=== PATIENT | male | born 1940 | race Caucasian/White ===

== ENCOUNTER 2024-06-23 14:32 | Emergency (ER) | payer OTHER, SELFPAY ==
[2024-06-23] VITALS (7 sets, daily range): BP systolic 105–176; BP diastolic 53–102; BMI 16.5
--- NOTE | 2024-06-23 16:12 | ED.GENMED ---
History of Present Illness
General
Chief Complaint: Swallowing Problem
Time Seen by Provider: 06/23/24 16:03
History of Present Illness
History of Present Illness:
Patient is a 84-year-old male with history of A-fib on Eliquis presenting to the emergency department with rib pain and flank pain after a fall. Patient states that yesterday he was sitting on a chair when he was attempting to get up he fell
landing on his right ribs. He did not hit his head or lose consciousness. He was ambulatory afterwards. Denies any numbness tingling headache. The fall was almost 24 hours ago. He does state that since then he has been having right sided rib
pain. He also had a cough for a few days. No fevers chills or URI symptoms. He states that he was eating a sandwich and then started choking. He is unsure if it was secondary to the cough or the pain. He has been able to eat since then has had
no issues.
Past History
Past History
ED Past Medical History: Arrthythmia, COPD, HTN and NIDDM
ED Past Surgical History: Negative Cardiac
Social History
Tobacco: Non-smoker
Alcohol: None
Drug: None
Personal:
Living: with family
Employment: Retired
Family History
Family History: Other (Noncontributory)
Phy Exam
Physical Exam
Physical Exam:
GENERAL: no acute distress
HEENT: atraumatic, extraocular muscles intact, no signs of entrapment, no other obvious trauma
NECK: no midline tenderness, normal range of motion
BACK: no midline tenderness, no other obvious trauma
CHEST: Right lower posterior ribs tenderness with no ecchymosis or crepitus
LUNGS: clear to auscultation bilaterally
CARDIOVASCULAR: regular rate and rhythm
ABDOMEN: soft, non-tender, no masses, no other obvious trauma, mild right flank pain
PELVIS: stable, no obvious injury
EXTREMITIES: moving all extremities, distal pulses intact, no other obvious trauma
NEUROLOGIC: awake, alert x 3, no focal deficits
Course
Orders/Labs/Results
Orders:
Orders
06/23/24 16:11
CT Chest/abd/pel Wo Iv Cont Urgent
Reason For Exam: right rib pain, right flank pain s/p fall
06/23/24 16:25
Basic Metabolic Panel Urgent
Complete Blood Count/With Diff Urgent
Abnormal Lab Results
06/23/24
16:25
RBC 4.05 L 10^6/uL
(4.70-6.10)
Hct 37.3 L %
(39.0-52.0)
MCH 32.8 H pg
(27.0-31.0)
Plt Count 94 L 10^3/uL
(130-400)
Absolute Lymphs (auto) 0.8 L 10^3/uL
(1.2-3.4)
Neutrophils % 80.7 H %
(42.2-75.2)
Lymphocytes % 9.7 L %
(20.5-51.1)
Chloride 114 H mmol/L
(98-107)
BUN 43 H mg/dl
(9-20)
Glucose 155 H mg/dl
(70-99)
Calcium 8.2 L mg/dl
(8.4-10.2)
06/23/24 16:25
06/23/24 16:25
Vital Signs
Initial and Last Documented VS:
Initial Vital Signs
Temp Pulse Resp BP Pulse Ox
98.7 F 95 18 105/58 97
06/23/24 14:35 06/23/24 14:35 06/23/24 14:35 06/23/24 14:35 06/23/24 14:35
Last Documented Vital Signs
Temp Pulse Resp BP Pulse Ox
98.7 F 66 14 176/84 99
06/23/24 14:35 06/23/24 21:00 06/23/24 21:00 06/23/24 21:00 06/23/24 21:00
MDM/Problems Addressed
Differential Diagnosis Includes:
Patient is a 84-year-old male with a fall about 24 hours ago with right-sided posterior rib pain and right flank pain. There was no head strike and he did not lose consciousness. He is not have any neurodeficits. Concern for rib fracture.
Considered intracranial injury though less likely as the fall was 24 hours ago with no neurodeficits and there was no head strike. Will obtain CT chest abdomen pelvis with contrast to rule out any traumatic injuries. I did offer pain control the
patient declines at this time
*Critical Care Note
Total Time (30-74mins, 75-104mins- exclusive of procedures): Not Applicable
Update Note
Update Note:
Blood work generally unremarkable. Patient went for CT scan where unfortunately his IV infiltrated. New IV was placed. Patient went back for CT scan and still having some pain with it. Decision was then made to obtain dry CT. He has been
hemodynamically stable with improvement in his pain without any pain medications so less likely to have intra-abdominal injuries.
Pending CT scan with no acute rib fractures. Patient remains well-controlled with his pain. Will discharge at this time.
ED Attending Note
-
Portions of this chart may have been created with voice recognition software.� Occasional wrong word or��sound alike� substitutions may have occurred due to the inherent limitations of voice recognition software.
Discharge Plan
Departure
Patient Disposition: Home (Routine Discharge)
Date of Disposition: 06/23/24
Time of Disposition: 21:18
Patient with high blood pressure during this ER visit?: No
Discharge Problem:
Fall, Rib contusion
Instructions: Rib fracture or bruised rib - ED discharge instructions
Prescriptions:
No Action
nitroglycerin 0.4 MG tablet, sublingual
0.4 mg sublingual [id number] PRN (Reason: chest pain)
trazodone 50 MG tablet
50 mg PO HS
atorvastatin 20 MG tablet
20 mg PO QPM
aspirin 81 MG tablet,delayed release (DR/EC)
81 mg PO DAILY
tamsulosin 0.4 MG capsule
0.4 mg PO DAILY
albuterol sulfate 1 PUFF HFA aerosol inhaler
2 puff inhalation R Q4HPRN PRN (Reason: SOB)
diltiazem HCl 240 MG capsule,extended release 24hr
240 mg PO DAILY Qty: 30 0RF
Trelegy Ellipta 1 EACH blister with device
1 puff IH R DAILY Qty: 0
acetaminophen [Tylenol Extra Strength] 500 MG tablet
500 mg PO Q4HPRN PRN (Reason: mild pain/ fever>100.5F) 0RF
Eliquis 5 MG tablet
2.5 mg PO BID
Patient Comments:
08/24/21-patient said he cuts these in half, ecw reocrd 2.5mg bid
(DME) Accu-Chek Guide test strips Strip
Qty: 200 0RF
Rx Instructions:
As Directed
(DME) lancets [Accu-Chek Softclix Lancets] Misc
Qty: 200 0RF
Rx Instructions:
As Directed
insulin aspart U-100 [Novolog FlexPen U-100 Insulin] 100 unit/mL (3 mL) Insulin Pen
10 unit SC AC Qty: 5 0RF
insulin glargine [Basaglar KwikPen U-100 Insulin] 100 unit/mL (3 mL) Insulin Pen
25 unit SC QPM Qty: 5 0RF
(DME) pen needle, diabetic [BD Ultra-Fine Eleonora Pen Needle] 32 gauge x 532' Needle
Qty: 200 0RF
Rx Instructions:
As Directed
(DME) blood-glucose meter [Accu-Chek Guide Glucose Meter] Misc
Qty: 1 0RF
Rx Instructions:
As Directed
Referrals:
UNKNOWN - PT DOES,NOT KNOW [Family Provider] -
Interventions
Interventions:
*Risk Screen - Suicide Last Done: 06/23/24 14:35
*General Assessment Last Done: 06/23/24 14:35
*Neglect/Abuse Screening Last Done: 06/23/24 14:35
*ED COVID-19 Vaccine History Last Done: 06/23/24 14:35
ED-EENT Assessment Last Done: 06/23/24 16:54
[facility]-Dvesfs-Wntmpsrgji Assessment Last Done: 06/23/24 16:54
ED- Pulmonary Assessment Last Done: 06/23/24 16:54
ED- Neurological Assessment Last Done: 06/23/24 16:54
Discharge Date and Time
Print Language: ROMANSH
[2024-06-23 16:46] LABS: % Basophils 0.6 % (0-2); % Eosinophils 1.9 % (0-6); % Immature Granulocytes 0.4 % (0-0.5); % Lymphocytes 9.7 % (20.5-51.1); % Monocytes 6.7 % (1.7-9.3); % Neutrophils 80.7 % (42.2-75.2); Absolute Basophils 0.1 10^3/uL (0-0.2); Absolute Eosinophils 0.2 10^3/uL (0-0.7); Absolute Lymphocytes 0.8 10^3/uL (1.2-3.4); Absolute Monocytes 0.5 10^3/uL (0.1-0.6); Absolute Neutrophils 6.3 10^3/uL (1.4-6.5); Hematocrit 37.3 % (39.0-52.0); Hemoglobin 13.3 g/dL (13.0-18.0); Mean Corp Hgb Conc. 35.7 g/dL (33.0-37.0); Mean Corpuscular Hgb 32.8 pg (27.0-31.0); Mean Corpuscular Volume 92.1 fL (80.0-94.0); Nucleated Red Blood Cells % 0 % (-); Red Blood Cell Count 4.05 10^6/uL (4.70-6.10); White Blood Cell Count 7.8 10^3/uL (4.8-10.8)
[2024-06-23 16:48] LABS: Blood Urea Nitrogen 43 mg/dl (9-20); Calcium 8.2 mg/dl (8.4-10.2); Carbon Dioxide 22 mmol/L (22-30); Chloride 114 mmol/L (98-107); Estimated Creatinine Clearance 31 ml/min; Glucose 155 mg/dl (70-99); Sodium 144 mmol/L (135-145); eGFR 54.51
[2024-06-23 17:28] LABS: Mean Platelet Volume 8.6 fL (7.4-10.4); Platelet Count 94 10^3/uL (130-400)
== END 2024-06-23 23:09 | disposition home or self-care (01) ==
LOC: EMR 14:32
PROVIDERS: EMERGENCY PHYSICIAN Student in an Organized Health Care Education/Training Program
DX: S20.211A Contusion of right front wall of thorax, initial encounter (principal); W19.XXXA Unspecified fall, initial encounter; I48.91 Unspecified atrial fibrillation
CPT/HCPCS: 99285; 71250; 74176; 80048; 85025

== ENCOUNTER 2024-07-03 18:35 | Inpatient (IN) | payer OTHER, SELFPAY ==
[2024-07-03] VITALS (10 sets, daily range): BP systolic 134–185; BP diastolic 50–97; BMI 20.1
[2024-07-03 14:21] LABS: % Basophils 0.5 % (0-2); % Eosinophils 1.7 % (0-6); % Immature Granulocytes 0.2 % (0-0.5); % Lymphocytes 10.1 % (20.5-51.1); % Monocytes 7.2 % (1.7-9.3); % Neutrophils 80.3 % (42.2-75.2); Absolute Basophils 0.1 10^3/uL (0-0.2); Absolute Eosinophils 0.2 10^3/uL (0-0.7); Absolute Lymphocytes 0.9 10^3/uL (1.2-3.4); Absolute Monocytes 0.7 10^3/uL (0.1-0.6); Absolute Neutrophils 7.4 10^3/uL (1.4-6.5); Hematocrit 39.5 % (39.0-52.0); Hemoglobin 13.6 g/dL (13.0-18.0); Mean Corp Hgb Conc. 34.4 g/dL (33.0-37.0); Mean Corpuscular Hgb 32.2 pg (27.0-31.0); Mean Corpuscular Volume 93.4 fL (80.0-94.0); Nucleated Red Blood Cells % 0 % (-); Platelet Count 115 10^3/uL (130-400); Red Blood Cell Count 4.23 10^6/uL (4.70-6.10); Red Cell Dist. Width 12.9 % (11.5-14.5); White Blood Cell Count 9.2 10^3/uL (4.8-10.8)
--- NOTE | 2024-07-03 14:22 | ED.CVA ---
History of Present Illness
General
Chief Complaint: CVA/TIA Symptoms
Source: family (Cousin)
Exam Limitations: clinical condition
Time Seen by Provider: 07/03/24 13:49
Onset of Stroke Symptoms
Onset of symptoms known: No
Time pt last seen normal is known: No
History of Present Illness
History of Present Illness:
84-year-old male lives with a tenant. Apparently the tenant noted that he came out of the bedroom this morning was not dressed and dressed himself in the living room which is unusual. He also seems somewhat confused having breakfast and who is to
make breakfast. Secondarily I had heard that he had urinated outside however this is not confirmed by the cousin. Patient has no specific complaints and seems unsure why he is here. Cousin does state he has a history of some dementia although my
description of his cognitive issues sound worse than baseline
Past History
Past History
ED Past Medical History: Arrthythmia, COPD, HTN and NIDDM
ED Past Surgical History: Negative Cardiac
Social History
Tobacco: Non-smoker
Alcohol: None
Drug: None
Personal:
Living: with family
Employment: Retired
Family History
Family History: Other (Noncontributory)
Review of Systems
Review of Systems
Unable to obtain full review of systems at this time due to: dementia
All Other Systems: Not applicable
Phy Exam
Physical Exam
Physical Exam:
GENERAL: Alert and oriented to name and place.. Chronically ill-appearing. In no apparent distress will repeat some questions like repeating his date of to other questions
EYE: Orbits normal.
NECK: Supple, no significant adenopathy.
ENT: Pharynx without erythema
CARDIAC: Regular rate and rhythm without any obvious murmurs.
LUNGS: Clear breath sounds,normal
ABDOMEN: Soft, without focal tenderness or distention
NEUROLOGICAL: Nonfocal. Follows simple commands. Vision normal. Extraocular muscles intact
SKIN: Warm and dry, no rash or lesion, no discoloration, skin intact.
MUSCULOSKELETAL: No edema,no deformity.Good color
PSYCH: Slightly flat affect
Course
Orders/Labs/Results
Orders:
Orders
07/03/24 Breakfast
Cholesterol Lowering
At Your Request: Non-Participating
Does patient need a safe tray?: No
Cholesterol Lowering: Sodium, 2 Gram
1800 filomena/15 CHO Diabetic
07/03/24 13:56
Electrocardiogram (*1) Stat
Reason for Study: Other
Other Reason for Exam: neuro symptoms
CT Head W/o Iv Contrast Urgent
Comment:
Reason For Exam: Confusion/change in mental status
Cardiac Monitoring- Treatment ONCE
EKG- Treatment ONCE
IV Insert/Care/Rem.- Treatment PRN
Pulse Ox/cont/shift [RESP] Stat
Quantity: 1
07/03/24 14:04
Complete Blood Count/With Diff Urgent
Comprehensive Metabolic Panel Urgent
07/03/24 14:11
Speech Screening from Juliana Routine
07/03/24 14:22
Urinalysis Reflex To Culture Urgent
Date Specimen was Collected: 07/03/24
Time Specimen was Collected: 14:07
Urine Microscopic Reflex Cult Urgent
07/03/24 15:54
Dexamethasone Sod Phosphate [Decadron] 6 mg IV NOW STA
07/03/24 15:57
Levetiracetam Injectable [Keppra] 1,000 mg IV NOW STA
07/03/24 17:27
Admit/Transfer Patient As Directed
Co-Sign Provider:
Level of Care: Inpatient admission
Assign to:: Telemetry
Physician / Group: [email or web address]
Diagnosis: left parietal lobe mass, AMS
Reason for Telemetry: Arrhythmia
Date to Stop Telemetry: 07/06/24
Time to Stop Telemetry: 11:00
Reason for Hospitalization: left parietal lobe mass, AMS
Expected length of stay greater than two midnights?: Yes
ELOS- Estimated Length of Stay in days: 3
I certify the patient meets the requirements for IP care: Yes
07/03/24 17:30
Code Status As Directed
Resuscitation Status: Full Code
07/03/24 20:43
Acetaminophen [Tylenol] 650 mg PO Q4HPRN PRN
Atorvastatin [Lipitor] 20 mg PO QPM
Bisacodyl [Dulcolax] 10 mg RECTAL [id number] PRN
Dextrose 50%-Water [Dextrose 50% Syringe] 12.5 grams IV [id number] PRN
Docusate W/Senna [Senokot-S] 1 tablet PO BIDPRN PRN
Glucagon [GlucaGen] 1 mg IM PRN PRN
Polyethylene Glycol Powder [Miralax] 17 grams PO DAILYPRN PRN
Trazodone [Desyrel] 50 mg PO HSPRN PRN
07/03/24 20:43
Neurosurgery Consult Routine
Consulting Provider: Candace Terry
Was physician already notified: Yes
Reason for Consult: New left parietal lobe mass causing mild mass effect
Activity As Directed
Activity Level: With Assistance
Bedside Glucose Monitoring As Directed
Frequency: AC&HS
Additional Instructions:: Change to q6h if pt on TPN, tube feeding or not eating
Intake/ Output As Directed
Frequency: Per unit guidelines
Pneumatic Compression Sleeves As Directed
Type: Knee high
Vital Signs As Directed
Frequency: Per unit guidelines
Weight As Directed
Frequency: Daily
DX Deep Vein Thrombosis Video Routine
07/03/24 22:00
Carbidopa/Levodopa [Sinemet 25-100] 1 tablet PO TID
Tamsulosin [Flomax] 0.4 mg PO HS
07/04/24 04:00
Dexamethasone Sod Phosphate [Decadron] 2 mg IV Q12H
07/04/24 06:00
Brain W/O & With Contrast MR [MR Brain W/o & With Contrast] IN AM
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
Reason For Exam: New left parietal lobe mass causing mild mass effe
Recent pill cam endoscopy?: No
07/04/24 07:23
Basic Metabolic Panel IN AM
Complete Blood Count/No Diff IN AM
Glycohemoglobin (HgbA1c) IN AM
07/04/24 07:30
Insulin Aspart Corrective Low [Novolog Flexpen-Low Resistance] See Protocol SC AC
07/04/24 08:00
Levetiracetam [Keppra] 500 mg PO BID
07/06/24 11:00
DC Protocol for Telemetry ONCE
Abnormal Lab Results
07/03/24 07/03/24
14:04 14:22
RBC 4.23 L 10^6/uL
(4.70-6.10)
MCH 32.2 H pg
(27.0-31.0)
Plt Count 115 L 10^3/uL
(130-400)
Absolute Neuts (auto) 7.4 H 10^3/uL
(1.4-6.5)
Absolute Lymphs (auto) 0.9 L 10^3/uL
(1.2-3.4)
Absolute Monos (auto) 0.7 H 10^3/uL
(0.1-0.6)
Neutrophils % 80.3 H %
(42.2-75.2)
Lymphocytes % 10.1 L %
(20.5-51.1)
Chloride 109 H mmol/L
(98-107)
BUN 48 H mg/dl
(9-20)
Creatinine 1.5 H mg/dL
(0.7-1.3)
Glucose 116 H mg/dl
(70-99)
Alkaline Phosphatase 138 H U/L
(38-126)
Ur Occult Blood Reflex 1+ A
(Negative)
Urine Albumin (Reflex) 2+ A
(Neg - Trace)
07/03/24 14:04
07/03/24 14:04
Vital Signs
Initial and Last Documented VS:
Initial Vital Signs
Temp Pulse Resp BP Pulse Ox
97.9 F 74 16 149/88 98
07/03/24 13:50 07/03/24 13:50 07/03/24 13:50 07/03/24 13:50 07/03/24 13:50
Last Documented Vital Signs
Temp Pulse Resp BP Pulse Ox
97.8 F 83 16 165/73 97
07/05/24 07:40 07/05/24 07:40 07/05/24 07:40 07/05/24 07:40 07/05/24 07:40
MDM/Problems Addressed
Differential Diagnosis Includes:
Patient nonfocal however cognitively off. Workup in progress looking for electrolyte issue infection central neurologic issue.
*Radiology
Radiology exam reviewed: radiology read reviewed (3 cm left parietal mass. Mild mass effect)
*Critical Care Note
Total Time (30-74mins, 75-104mins- exclusive of procedures): 35
Data Reviewed
Review of Other/Old Records Reveals: Labs, Records and Testing
Update Note
Update Note:
Neurosurgery. Will give a dose of Decadron Keppra admit for MRI with and without contrast. Was contacted
Family updated. Patient aware although cognitively not totally convinced he is fully understanding
ED Attending Note
-
Portions of this chart may have been created with voice recognition software.� Occasional wrong word or��sound alike� substitutions may have occurred due to the inherent limitations of voice recognition software.
Discharge Plan
Departure
Patient Disposition: Admit
Date of Disposition: 07/03/24
Time of Disposition: 15:58
Presentation/result/management discussed w/ accepting MD/DO: Neurosurgery
Discharge Problem:
Change in mental status, New parietal mass, History of Parkinson's/mild dementia
Interventions
Interventions:
*Risk Screen - Suicide Last Done: 07/03/24 13:50
*General Assessment Last Done: 07/03/24 14:00
*Neglect/Abuse Screening Last Done: 07/03/24 13:50
*ED- Fall Risk Assessment Last Done: 07/03/24 14:00
*ED COVID-19 Vaccine History Last Done: 07/03/24 20:20
*Nursing Disposition Last Done: 07/03/24 20:20
ED- Pulmonary Assessment Last Done: 07/03/24 13:57
ED- Neurological Assessment Last Done: 07/03/24 18:00
ED- Cardiac Assessment Last Done: 07/03/24 13:57
ED Swallowing Screen Last Done: 07/03/24 13:57
Discharge Date and Time
Discharge Date/Time: 07/03/24 20:20
[2024-07-03 14:32] LABS: Urine Albumin 2+ (Neg - Trace); Urine Bilirubin Negative (Negative); Urine Character Clear (Clear); Urine Color Yellow; Urine Glucose Negative (Negative); Urine Ketone Negative (Negative); Urine Leukocyte Negative (Negative); Urine Nitrite Negative (Negative); Urine Occult Blood 1+ (Negative); Urine Specific Gravity 1.015 (<1.030); Urine Urobilinogen Negative (Neg - 1+)
[2024-07-03 14:37] LABS: ALT (SGPT) 36 U/L (0-50); AST (SGOT) 31 U/L (17-59); Albumin 3.8 g/dl (3.5-5.0); Alkaline Phosphatase 138 U/L (38-126); Blood Urea Nitrogen 48 mg/dl (9-20); Calcium 9.4 mg/dl (8.4-10.2); Carbon Dioxide 27 mmol/L (22-30); Chloride 109 mmol/L (98-107); Glucose 116 mg/dl (70-99); Potassium 4.8 mmol/L (3.5-5.1); Sodium 142 mmol/L (135-145); Total Bilirubin 0.6 mg/dl (0.2-1.3); Total Protein 7.1 g/dl (6.3-8.2); eGFR 45.91
[2024-07-03 14:46] LABS: Urine Hyaline Cast 0-2 /LPF (0-2)
[2024-07-03 14:48] LABS: Urine Red Blood Cell 0-2 /HPF (0-2); Urine White Cell None Seen /HPF (0-5)
[2024-07-03 14:49] LABS: Urine Squamous Cell 0-2 /LPF (Few)
[2024-07-03] MEDS: KEPPRA 1000 MG IV (16:54)
[2024-07-03] MEDS: DECADRON 6 MG IV (16:54)
--- NOTE | 2024-07-03 17:12 | HPS.HSE ---
Family Physician
-
Family Physician: Moustapha Doe
Chief Complaint
-
Altered cognitive function
History of Present Illness
HPI
84M at home with tenant HX COPD, chronic hypoxic RR on home O2, Paroxysmal AF on Eliquis, Chronic diastolic HF, CAD with prior stent, Benign HTN, Hyperlipidemia, DMT2, CKD2, BPH seen at ER for altered cogntive function?
- Apparently the tenant noted that he came out of the bedroom this morning was not dressed and dressed himself in the living room which is unusual.
- He also seems somewhat confused having breakfast and who is to make breakfast.
- Secondarily tenant heard that he had urinated outside however this is not confirmed by the cousin.
- Patient has no specific complaints and seems unsure why he is here.
- Cousin does state he has a history of some dementia although the description of his cognitive issues sound worse than baseline
Medical History
Past Medical History
Past Medical History: Reports Arrhythmia (Prx AF on Eliquis ), CAD (with stent ), CHF (chr HFpEF with LVEF 65- 70 per TTE in 2022 ), COPD, HTN, Hypercholesterolemia, IDDM, Renal Failure (CKD2/3a with baseline Cr 1.3- 1.7 , baseline eGFR 55 ),
Psychiatric (Suspect MCI vs mild dementia - vascular vs progressive Alzheimer's , anxiety ) and Other (chr macrocytic anemia )
Additional Past Medical History:
HX Chronic hypoxic RF s/p COVID-19, BPH
Past Surgical History: Reports Other
Social History
Tobacco: Non-smoker
Alcohol: None
Family History
Family History: Not pertinent
Allergies / Home Medications
Allergies reflects when Allergies were last updated in [employer].
Home Medications with original date entered in [employer]
Allergy/Medication List:
Allergies
Allergy/AdvReac Type Severity Reaction Status Date / Time
varenicline [Varenicline] AdvReac nuno Verified 07/03/24 13:49
dreams
Home Medications
trazodone 50 mg tablet 50 mg PO HSPRN PRN sleep 07/07/18
atorvastatin 20 mg tablet 20 mg PO QPM High cholesterol 02/03/20
tamsulosin 0.4 mg capsule 0.4 mg PO HS Urinary issue 02/03/20
carbidopa 25 mg-levodopa 100 mg tablet 1 tab PO TID 07/03/24
fluticasone fur. 200 mcg-umeclid 62.5 mcg-vilant 25 mcg inhalat.powder (Trelegy Ellipta) 1 inh inhalation R DAILY 07/03/24
Review of Systems
-
Constitutional: Reports No Symptoms
EENT: Reports No Symptoms
Respiratory: Reports No Symptoms
Cardiac: Reports No Symptoms
Abdomen/GI: Reports No Symptoms
: Reports No Symptoms
Musculoskeletal: Reports No Symptoms
Skin: Reports No Symptoms
Neurological: Reports See HPI
Endocrine: Reports No Symptoms
Hematologic/Lymphatic: Reports No Symptoms
Psych: Reports No Symptoms
Physical Exam
Vital Signs
Vital Signs
Temp Pulse Resp BP Pulse Ox
97.9 F 78 21 150/61 98
07/03/24 13:50 07/03/24 16:45 07/03/24 16:45 07/03/24 16:00 07/03/24 16:45
Physical Exam
General: No Apparent Distress and Other (looks thin and chronically ill, unkempt )
HEENT: NormoCephalic, Moist mucous membranes and Atraumatic
Respiratory: Clear
Cardiac: S1/S2, Regular Rhythm and Bradycardia; No Murmur or Rub
GI: Soft, Non Tender, Non Distended and Normal Bowel Sounds; No Organomegaly
Rectal: Deferred by Provider
Musculoskeletal: No Clubbing, No Cyanosis and No Edema
Skin: No Rash
Neuro: Nonfocal/grossly intact
Laboratory Results
-
07/03/24 14:04
07/03/24 14:04
Laboratory Results
Total Bilirubin 0.6 mg/dl (0.2-1.3) 07/03/24 14:04
AST 31 U/L (17-59) 07/03/24 14:04
ALT 36 U/L (0-50) 07/03/24 14:04
Alkaline Phosphatase 138 U/L (38-126) H 07/03/24 14:04
Data Reviewed
-
CT Scan: Report Reviewed by me
Medical Tests (Nuc Med, Echo, EKG etc): Report Reviewed by me
Lab Data: Labs Reviewed by me
Old Records: Reviewed
Impression/Plan
-
Labs
06/23/24 07/03/24
16:25 14:04
WBC 7.8 9.2
Hgb 13.3 13.6
MCV 93.4
Plt Count 94 L 115 L
BUN 43 H 48 H
Creatinine 1.3 1.5 H
eGFR 54.51 45.91
AST 31
ALT 36
Alkaline Phosphatase [address] Head W/o Iv Contrast
- New left parietal lobe mass causing mild mass effect on the left lateral ventricle.
- Findings suggesting a small nonacute infarct of the posterior left frontal lobe. New from previous exam.
- Mild atrophy. Progressed
- Mild periventricular small vessel ischemic disease. New
- Mild nonacute sinus disease.
12/06/22 TTE
Estimated ejection fraction is 65-70%. No regional wall motion abnormalities are seen.
Normal right ventricular size and function.
Aortic sclerosis without stenosis.
No significant change since the prior study of 02/27/2022.
Last hospitalist admission:
DATE OF ADMISSION: 03/31/2020 - DATE OF DISCHARGE: 04/05/2020
PRIMARY DIAGNOSIS:
1. Fever likely COVID vaccine reaction.
2. Dizziness with vertigo suspected peripheral. Negative MRI of the brain.
3. Mild pancytopenia.
4. Anemia.
Known HX
Chronic hypoxic respiratory failure on home O2.
Paroxysmal atrial fibrillation on Eliquis.
Chronic diastolic heart failure.
Coronary artery disease with prior stent.
Hypertension.
Hyperlipidemia.
Diabetes mellitus type 2.
Chronic kidney disease stage 2.
Chronic obstructive pulmonary disease without exacerbation.
Anxiety.
Benign prostatic hypertrophy.
ASSESSMENT & PLAN
Pending Rx reconciliation
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
- Patient aware although cognitively not totally convinced he is fully understanding
- S/P IV Decadron
- Empiric Keppra for Sz precaution
- ER d/w Neuro surgeon suggest Brain MRI w/wo
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
Current Cr 1.5
- baseline Cr 1.3- 1.7 , baseline e GFR 55
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
- c/w [employer] ASA
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
HX cogntiv decline endorsed by cousin
HX HLD
- c/w ASA, Atorvastatin
- OT to eavlf ro BCAT
HX Chronic hypoxic RF s/p COVID-19:
- c/w supplemental oxygen via nasal cannula
HX Prx AF
- c/w [employer] Cardizem and [employer] Eliquis
Chronic HFpEF with LVEF 65- 70 in 2022
- clinically well compensated
- Monitor volume status with I's and O's, and daily weights.
CAD HX s/p stent:
Hyperlipidemia:
- Continue aspirin and [employer] atorvastatin
Essential hypertension
- Continue Cardizem
DM T2
- hold Metformin
- Pending Rx reconciliation
- lantus and Aspart listed
HX COPD
- Continue Advair
Chronic macrocytic anemia:
Hemoglobin at base
Anxiety:
- Continue trazodone
BPH:
- Continue Flomax
DVT prophylaxis: Eliquis
CODE STATUS: Full code
IP TLM
--- NOTE | 2024-07-03 17:15 | PHANOTE ---
med rec note- called Agustina on file she explained that patient suppose to on Eliquis 2.5mg bid, diltiazem cd 240md daily, NovoLog meals and Lantus 16u Qhs, Lasix 20mg daily but patient doctor stopped them in March 2024 since patient was not taking
them correctly or even at all.
--- NOTE | 2024-07-03 17:45 | EDRN ---
Dr. Flores in room w/ pt.
--- NOTE | 2024-07-03 19:05 | EDRN ---
Pt found disconnected and naked in room attempting to ambulate to BR at this time. ED PCT in to assist pt and pt replaced on registered nurse cardiac and made comfortable on stretcher.
--- NOTE | 2024-07-03 20:04 | EDRN ---
NIHSS and swallow test results discussed w/ pt's nurse on 2 N at this time, Berenice OSWALD.
[2024-07-03] MEDS: FLOMAX 0.4 MG PO (22:01)
[2024-07-03] MEDS: SINEMET 25-100 1 TABLET PO (22:01)
[2024-07-03] MEDS: LIPITOR 20 MG PO (22:01)
[2024-07-03 22:02] LABS: Glucose - Point of Care 171 mg/dl (70-99)
[2024-07-04 02:00] VITALS: BMI 20.1
[2024-07-04 03:28] VITALS: BP 134/72
[2024-07-04] MEDS: DECADRON 2 MG IV (03:30)
--- NOTE | 2024-07-04 05:35 | PTCARENOTE ---
patient arrived to unit from ER approx 21:00 via stretcher, He is awake and alert with expressive and receptive asaphia, He was able to stand and pivot to bed, he is able to DONOVAN's no facial droop, good strength throughout, NIH score a 6 at this
time. he was placed on bed alarm, cardiac rehab nurse with call tan in reach.
[2024-07-04] MEDS: SPIRIVA RESPIMAT 2.5 MCG 2 PUFF INH (07:36)
[2024-07-04] MEDS: SYMBICORT 160/4.5 MCG INHALER 2 PUFF INH ×2 (07:36→19:39)
[2024-07-04 07:40] VITALS: BP 130/102
[2024-07-04 07:48] LABS: Hematocrit 39.5 % (39.0-52.0); Hemoglobin 14.1 g/dL (13.0-18.0); Mean Corp Hgb Conc. 35.7 g/dL (33.0-37.0); Mean Corpuscular Hgb 32.3 pg (27.0-31.0); Mean Corpuscular Volume 90.6 fL (80.0-94.0); Mean Platelet Volume 9.3 fL (7.4-10.4); Platelet Count 106 10^3/uL (130-400); Red Blood Cell Count 4.36 10^6/uL (4.70-6.10); Red Cell Dist. Width 12.4 % (11.5-14.5); White Blood Cell Count 8.8 10^3/uL (4.8-10.8)
[2024-07-04 07:52] LABS: Glucose - Point of Care 221 mg/dl (70-99)
[2024-07-04] MEDS: SINEMET 25-100 1 TABLET PO ×3 (08:16→21:37)
[2024-07-04] MEDS: KEPPRA 500 MG PO (08:16)
[2024-07-04 08:18] LABS: Blood Urea Nitrogen 42 mg/dl (9-20); Calcium 9.3 mg/dl (8.4-10.2); Carbon Dioxide 21 mmol/L (22-30); Chloride 110 mmol/L (98-107); Estimated Creatinine Clearance 32 ml/min; Glucose 195 mg/dl (70-99); Potassium 4.7 mmol/L (3.5-5.1); Sodium 140 mmol/L (135-145); eGFR 54.51
[2024-07-04] MEDS: NOVOLOG FLEXPEN-LOW RESISTANCE 2 UNITS SC ×2 (08:21→18:09)
[2024-07-04 11:15] VITALS: BP 130/86
--- NOTE | 2024-07-04 11:25 | CON.NEURO ---
Consultation
Order
Date of Consultation: 07/04/24
Requesting Provider: Milton Lehman MD
Reason for Consult: Stroke
Neurology Consultation Note.
HPI: This is AN 84-year-old man who presented to [facility] on July 03, 2024 with encephalopathy.
ER VS: 149/88-185/70, 95, afebrile.
EKG:NSR, QTc Int : 401 ms
PDMP: No reportedly prescribed medication
Labs: Hemoglobin A1c�6.8, creatinine�1.5, LDL�157.
Brain MRI�acute left MCA/[employer] territory infarct
PMH: PA A-Fib, CAD, COPD, parkinsonism/encephalopathy/ambulatory dysfunction, AAA, HTN, DLP, DM, CKD, BPH, NUSRAT, OA
PSH: Bilateral CEA, C7/T7 fusion PTCA, right inguinal hernia repair, anemia,
SH: Former smoker, ambulates with a walker
FH: Unknown
All:Chantix�
ROS: Limited due to aphasia
General: Well developed. In no acute distress.
Cardio: Regular rate and rhythm without murmur. Extremities are without cyanosis or edema.
Neuro:
Mental Status: Alert, severe expressive>receptive aphasia. Mimics. Perseverates.
Cranial Nerves: Pupils are equally round, surgical. Horizontal EOMs full. Blinks to threat right less than left. No ptosis. No nystagmus. Face symmetric. Impaired hearing AU. Tongue midline. No dysarthria.
Motor: Increased motor tone in upper and lower extremities. No PT or leg drift
Reflexes: Bilateral grasp
Sensory: Limited exam due to aphasia
Coordination: Mild action hand tremor. Limited dysmetria exam
Gait: deferred
Assessment and Plan:
I. Acute left MCA stroke. Likely etiology�cardioembolic
II. PA A-Fib
III. History of carotid artery disease, status post bilateral CEA
IV. Parkinsonism
- Continue Telemetry monitoring
- Fall and aspiration precaution
- Start DAPT
- Lipitor 40 mg QHS.
- DC Keppra, dexamethasone
- Hold Eliquis for 7 days
- Speech therapy
- TTE
- Will contact patient's family to obtain cognitive and functional baseline and clarified medication administration routine.
- DVT prophylaxis.
I personally reviewed all radiology and labs along with past medical records pertinent to current medical problems. Total time spent in patient care is 60 minutes.
Thank you for allowing us to participate in the care of this patient. We will continue to follow. Please do not hesitate to contact us with any questions or concerns.
Subjective/Objective
Subjective Data
Date of Service: July 04, 2024
Objective Data
Vital Signs
Temp Pulse Resp BP Pulse Ox
36.6 C 77 16 130/102 97
07/04/24 07:40 07/04/24 07:41 07/04/24 07:41 07/04/24 07:40 07/04/24 07:41
Lab Results
07/04/24 07:23
07/04/24 07:23
Sodium 140 mmol/L (135-145) 07/04/24 07:23
Potassium 4.7 mmol/L (3.5-5.1) 07/04/24 07:23
BUN 42 mg/dl (9-20) H 07/04/24 07:23
Glucose 195 mg/dl (70-99) H 07/04/24 07:23
Calcium 9.3 mg/dl (8.4-10.2) 07/04/24 07:23
LDL Cholesterol, Calc Cancelled 07/04/24 10:18
Patient Allergies
varenicline [Varenicline] Allergy (Verified 07/03/24 20:45)
weird dreams
Medications
-
Active Medications
Generic Name Dose Route Start Last Admin
Trade Name Freq PRN Reason Stop Dose Admin
Acetaminophen 650 mg 07/03/24 20:43
Acetaminophen 325 Mg Tablet PO 07/31/24 20:42
Q4HPRN PRN
mild pain/ANDERSON/temp> 100.4F
Atorvastatin Calcium 20 mg 07/03/24 20:43 07/03/24 22:01
Atorvastatin (Lipitor) 20 Mg Tablet PO 07/31/24 20:42 20 mg
QPM TARA Administration
Bisacodyl 10 mg 07/03/24 20:43
Bisacodyl 10 Mg Rectal Suppository RECTAL 07/31/24 20:42
[id number] PRN
constipation
Budesonide/Formoterol Fumarate 2 puff 07/04/24 08:00 07/04/24 07:36
Symbicort Inhaler 160/4.5 INH 08/01/24 07:59 2 puff
R BID TARA Administration
Protocol
Carbidopa/Levodopa 1 tablet 07/03/24 22:00 07/04/24 08:16
Carbidopa (25 Mg)/Levodopa (100 Mg) Regular Release Tablet PO 07/31/24 21:59 1 tablet
TID TARA Administration
Dexamethasone Sodium Phosphate 2 mg 07/04/24 04:00 07/04/24 03:30
Dexamethasone 4 Mg/Ml 1 Ml Vial IV 08/01/24 03:59 2 mg
Q12H TARA Administration
Dextrose 12.5 grams 07/03/24 20:43
Dextrose 50% (0.5 Grams/Ml) 50 Ml Syringe IV 07/31/24 20:42
[id number] PRN
hypoglycemia
Protocol
Glucagon 1 mg 07/03/24 20:43
Glucagon 1 Mg Vial IM 07/31/24 20:42
PRN PRN
hypoglycemia
Protocol
Insulin Aspart 0 units 07/04/24 07:30 07/04/24 08:21
Insulin Aspart Low Resistance 300 Units/3 Ml Pen.Injctr SC 08/01/24 07:29 2 units
AC TARA Administration
Protocol
Levetiracetam 500 mg 07/04/24 08:00 07/04/24 08:16
Levetiracetam 500 Mg Regular Release Tablet PO 08/01/24 07:59 500 mg
BID TARA Administration
Polyethylene Glycol 17 grams 07/03/24 20:43
Polyethylene Glycol Powder 17 Grams Packet PO 07/31/24 20:42
DAILYPRN PRN
constipation
Senna/Docusate Sodium 1 tablet 07/03/24 20:43
Docusate W/Senna (Cyndee-Colace) Tablet PO 07/31/24 20:42
BIDPRN PRN
constipation
Sodium Chloride 0 flush 07/03/24 21:00
Sodium Chloride 0.9% (Flush) Syringe IV 07/31/24 20:59
PER PROTOCOL TARA
Tamsulosin HCl 0.4 mg 07/03/24 22:00 07/03/24 22:01
Tamsulosin 0.4 Mg Capsule PO 07/31/24 21:59 0.4 mg
HS TARA Administration
Tiotropium Ellis 2 puff 07/04/24 08:00 07/04/24 07:36
Tiotropium (Spiriva Respimat) 2.5 Mcg Inhaler INH 08/01/24 07:59 2 puff
R DAILY TARA Administration
Protocol
Trazodone HCl 50 mg 07/03/24 20:43
Trazodone 50 Mg Tablet PO 07/31/24 20:42
HSPRN PRN
sleep
Home Medications
�Medication �Instructions �Recorded
trazodone 50 mg tablet 50 mg PO HSPRN PRN sleep 07/07/18
atorvastatin 20 mg tablet 20 mg PO QPM High cholesterol 02/03/20
tamsulosin 0.4 mg capsule 0.4 mg PO HS Urinary issue 02/03/20
carbidopa 25 mg-levodopa 100 mg 1 tab PO TID 07/03/24
tablet
fluticasone fur. 200 mcg-umeclid 1 inh inhalation R DAILY 07/03/24
62.5 mcg-vilant 25 mcg
inhalat.powder (Trelegy Ellipta)
Vital Signs and Labs
-
Vital Signs and Labs:
Vital Signs
Temp Pulse Resp BP Pulse Ox
36.6 C 77 16 130/102 97
07/04/24 07:40 07/04/24 07:41 07/04/24 07:41 07/04/24 07:40 07/04/24 07:41
Lab Results
07/04/24 07:23
07/04/24 07:23
Sodium 140 mmol/L (135-145) 07/04/24 07:23
Potassium 4.7 mmol/L (3.5-5.1) 07/04/24 07:23
BUN 42 mg/dl (9-20) H 07/04/24 07:23
Glucose 195 mg/dl (70-99) H 07/04/24 07:23
Calcium 9.3 mg/dl (8.4-10.2) 07/04/24 07:23
LDL Cholesterol, Calc Cancelled 07/04/24 10:18
Medications
-
Medications:
Generic Name Dose Route Start Last Admin
Trade Name Freq PRN Reason Stop Dose Admin
Acetaminophen 650 mg 07/03/24 20:43
Acetaminophen 325 Mg Tablet PO 07/31/24 20:42
Q4HPRN PRN
mild pain/ANDERSON/temp> 100.4F
Aspirin 81 mg 07/04/24 12:00
Aspirin 81 Mg (Enteric Coated) Tablet PO 08/01/24 11:59
DAILY TARA
Atorvastatin Calcium 20 mg 07/03/24 20:43 07/03/24 22:01
Atorvastatin (Lipitor) 20 Mg Tablet PO 07/31/24 20:42 20 mg
QPM TARA Administration
Bisacodyl 10 mg 07/03/24 20:43
Bisacodyl 10 Mg Rectal Suppository RECTAL 07/31/24 20:42
[id number] PRN
constipation
Budesonide/Formoterol Fumarate 2 puff 07/04/24 08:00 07/04/24 07:36
Symbicort Inhaler 160/4.5 INH 08/01/24 07:59 2 puff
R BID TARA Administration
Protocol
Carbidopa/Levodopa 1 tablet 07/03/24 22:00 07/04/24 08:16
Carbidopa (25 Mg)/Levodopa (100 Mg) Regular Release Tablet PO 07/31/24 21:59 1 tablet
TID TARA Administration
Dexamethasone Sodium Phosphate 2 mg 07/04/24 04:00 07/04/24 03:30
Dexamethasone 4 Mg/Ml 1 Ml Vial IV 08/01/24 03:59 2 mg
Q12H TARA Administration
Dextrose 12.5 grams 07/03/24 20:43
Dextrose 50% (0.5 Grams/Ml) 50 Ml Syringe IV 07/31/24 20:42
[id number] PRN
hypoglycemia
Protocol
Glucagon 1 mg 07/03/24 20:43
Glucagon 1 Mg Vial IM 07/31/24 20:42
PRN PRN
hypoglycemia
Protocol
Insulin Aspart 0 units 07/04/24 07:30 07/04/24 08:21
Insulin Aspart Low Resistance 300 Units/3 Ml Pen.Injctr SC 08/01/24 07:29 2 units
AC TARA Administration
Protocol
Polyethylene Glycol 17 grams 07/03/24 20:43
Polyethylene Glycol Powder 17 Grams Packet PO 07/31/24 20:42
DAILYPRN PRN
constipation
Senna/Docusate Sodium 1 tablet 07/03/24 20:43
Docusate W/Senna (Cyndee-Colace) Tablet PO 07/31/24 20:42
BIDPRN PRN
constipation
Sodium Chloride 0 flush 07/03/24 21:00
Sodium Chloride 0.9% (Flush) Syringe IV 07/31/24 20:59
PER PROTOCOL TARA
Tamsulosin HCl 0.4 mg 07/03/24 22:00 07/03/24 22:01
Tamsulosin 0.4 Mg Capsule PO 07/31/24 21:59 0.4 mg
HS TARA Administration
Tiotropium Ellis 2 puff 07/04/24 08:00 07/04/24 07:36
Tiotropium (Spiriva Respimat) 2.5 Mcg Inhaler INH 08/01/24 07:59 2 puff
R DAILY TARA Administration
Protocol
Trazodone HCl 50 mg 07/03/24 20:43
Trazodone 50 Mg Tablet PO 07/31/24 20:42
HSPRN PRN
sleep
Home Medications
-
Home Medications
trazodone 50 mg tablet 50 mg PO HSPRN PRN sleep 07/07/18
atorvastatin 20 mg tablet 20 mg PO QPM High cholesterol 02/03/20
tamsulosin 0.4 mg capsule 0.4 mg PO HS Urinary issue 02/03/20
carbidopa 25 mg-levodopa 100 mg tablet 1 tab PO TID 07/03/24
fluticasone fur. 200 mcg-umeclid 62.5 mcg-vilant 25 mcg inhalat.powder (Trelegy Ellipta) 1 inh inhalation R DAILY 07/03/24
[2024-07-04 11:29] LABS: Glycohemoglobin (HgbA1c) 6.8 % (4.0-5.6)
[2024-07-04 11:32] LABS: HDL Cholesterol 49 mg/dl; LDL Cholesterol, Calculated 157 mg/dl; Total Cholesterol 222 mg/dl (50-199); Triglyceride 83 mg/dl (10-149); Very Low Density Lipoprotein 16 mg/dl (0-30)
--- NOTE | 2024-07-04 12:00 | W.PN.HOSP.TC ---
Today's Communication/Plan
-
Monitor vitals
See plan
Check echo
Discussed with cousin over the phone, she will bring the accurate med list. Per her patient is not taking Plavix and Eliquis
A lot of his medications recently stopped outpatient
Start dual antiplatelet therapy, statin.
Speech eval
Assessment / Plan
Assessment / Plan
General: No Apparent Distress and Other (looks thin and chronically ill)
HEENT: NormoCephalic, Moist mucous membranes and Atraumatic
Respiratory: Clear
Cardiac: S1/S2, Regular Rhythm and Bradycardia; No Murmur or Rub
GI: Soft, Non Tender, Non Distended and Normal Bowel Sounds
Musculoskeletal: No Edema
Skin: No Rash
Neuro: Nonfocal/grossly intact
Expressive aphasia change mental status likely secondary to acute CVA
MRI brain with CVA rather than mass
Neurology consulted
Discussed with neurology, started dual antiplatelet therapy. Continue with aspirin and Plavix
Discussed with patient's cousin who is listed as point of contact, per her he used to be on Eliquis which was discontinued and he is also currently not taking any Plavix. Cousin will provide us accurate medication list. per cousin, majority of his
meds were stopped after discussion with his PCP, cardiology and neurology since patient was not compliant with his medications
- Patient aware although cognitively not totally convinced he is fully understanding
DC Decadron, Keppra
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
- baseline Cr 1.3- 1.7 , baseline e GFR 55
monitor
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
Suspect dementia
HX cogntive decline endorsed by cousin
HX HLD
- c/w ASA, Atorvastatin
HX Prx AF
see above
monitor
Chronic HFpEF with LVEF 65- 70 in 2022
- clinically well compensated
- Monitor volume status with I's and O's, and daily weights.
follows up with Dr Gamez outpatient
CAD HX s/p stent:
Hyperlipidemia:
- Continue aspirin and [employer] atorvastatin
Essential hypertension
- Continue Cardizem
DM T2
DM meds also been stopped outpatient
cw sliding scale
A1c 6.8
HX COPD
- Continue trelegy
Chronic macrocytic anemia:
Hemoglobin at base
Anxiety:
- Continue trazodone
BPH:
- Continue Flomax
DVT prophylaxis: heparin
CODE STATUS: Full code
I spent a total of 52 minutes with the patient or on the floor. More than 50% of this time involved counseling and coordination of care.
Anticipated Discharge: > 48 hours
Subjective/Interval History
-
Date of Service: July 04, 2024
denies pain
Objective Data
-
Labs:
Laboratory Results
07/04/24
07:23
WBC 8.8
Hgb 14.1
Hct 39.5
Plt Count 106 L
Sodium 140
Potassium 4.7
Chloride 110 H
Carbon Dioxide 21 L
BUN 42 H
Creatinine 1.3
Glucose 195 H
Calcium 9.3
Vital Signs:
Vital Signs
Temp Pulse Resp BP Pulse Ox
97.8 F 77 16 130/102 97
07/04/24 07:40 07/04/24 07:41 07/04/24 07:41 07/04/24 07:40 07/04/24 07:41
I&O
07/03/24 07/04/24 07/05/24
06:59 06:59 06:59
Output Total 250 / 250
Balance -250 / -250
[2024-07-04 12:50] LABS: Glucose - Point of Care 314 mg/dl (70-99)
[2024-07-04] MEDS: NOVOLOG FLEXPEN-LOW RESISTANCE 4 UNITS SC (12:51)
[2024-07-04] MEDS: ASPIR LOW (ENTERIC COATED) 81 MG PO (12:55)
[2024-07-04] MEDS: PLAVIX 75 MG PO (12:55)
[2024-07-04 15:35] VITALS: BP 121/61
--- NOTE | 2024-07-04 16:05 | CM ---
Patient seen bedside. Initial assessment completed. Patient is a 84 y/o M at home with tenant.
HX COPD, chronic hypoxic RR on home O2, Paroxysmal AF on Eliquis, Chronic diastolic HF, CAD with prior stent, Benign HTN, Hyperlipidemia, DMT2, CKD2, BPH seen at ER for altered cogntive function. On room air.
Patient resides w/ a tenant in a 2ST[facility]- 2 steps to enter. Independent according to patient, he has a cane but sometimes doesn't use it. Patient stated he has a shower chair, grab bar and CPAP he uses infrequently. No SNF/HC hx reported. Patient
reports he's had OP therapy in the past. Not sure how accurate information is, per chart patient's tenant and cousin reported dementia and confusion.
Address, point of contact and insurance verified
PCP: Moustapha Doe
Pharmacy: [facility] (located in [facility]
CM attempted phone call to patient's contact, Agustina Mathews, left message. Per patient, Agustina is his sister.
PT/OT ordered, will watch for recommendations for d/c planning
Plan: CM will cont to follow for d/c planning
[2024-07-04 17:07] LABS: Glucose - Point of Care 226 mg/dl (70-99)
[2024-07-04] MEDS: LIPITOR 40 MG PO (18:10)
[2024-07-04 19:15] VITALS: BP 120/56
[2024-07-04] MEDS: HEPARIN 5000 UNITS SC (20:19)
[2024-07-04] MEDS: FLOMAX 0.4 MG PO (21:37)
[2024-07-04 21:47] LABS: Glucose - Point of Care 176 mg/dl (70-99)
[2024-07-04 23:15] VITALS: BP 143/59
[2024-07-05 03:43] VITALS: BP 131/60
[2024-07-05 05:52] VITALS: BMI 20.3
[2024-07-05 06:11] LABS: % Basophils 0.1 % (0-2); % Eosinophils 0.1 % (0-6); % Immature Granulocytes 0.6 % (0-0.5); % Lymphocytes 5.5 % (20.5-51.1); % Monocytes 4.6 % (1.7-9.3); % Neutrophils 89.1 % (42.2-75.2); Absolute Immature Granulocytes 0.1 10^3/uL (0-0.05); Absolute Lymphocytes 0.8 10^3/uL (1.2-3.4); Absolute Monocytes 0.7 10^3/uL (0.1-0.6); Absolute Neutrophils 13.7 10^3/uL (1.4-6.5); Hematocrit 37.8 % (39.0-52.0); Hemoglobin 13.3 g/dL (13.0-18.0); Mean Corp Hgb Conc. 35.2 g/dL (33.0-37.0); Mean Corpuscular Volume 91.1 fL (80.0-94.0); Mean Platelet Volume 9.7 fL (7.4-10.4); Nucleated Red Blood Cells % 0 % (-); Platelet Count 110 10^3/uL (130-400); Red Blood Cell Count 4.15 10^6/uL (4.70-6.10); Red Cell Dist. Width 12.8 % (11.5-14.5); White Blood Cell Count 15.4 10^3/uL (4.8-10.8)
[2024-07-05 06:38] LABS: Blood Urea Nitrogen 50 mg/dl (9-20); Calcium 8.8 mg/dl (8.4-10.2); Carbon Dioxide 24 mmol/L (22-30); Chloride 107 mmol/L (98-107); Estimated Creatinine Clearance 30 ml/min; Glucose 155 mg/dl (70-99); Potassium 4.6 mmol/L (3.5-5.1); Sodium 137 mmol/L (135-145); eGFR 49.87
[2024-07-05 07:03] LABS: Glucose - Point of Care 169 mg/dl (70-99)
[2024-07-05] MEDS: SYMBICORT 160/4.5 MCG INHALER 2 PUFF INH ×2 (07:27→19:55)
[2024-07-05] MEDS: SPIRIVA RESPIMAT 2.5 MCG 2 PUFF INH (07:28)
--- NOTE | 2024-07-05 07:37 | W.PN.NEURO.1 ---
Today's Communication / Plan
-
.
Subjective/Objective
Subjective Data
Date of Service: July 05, 2024
Neurology follow-up note.
HPI: This is AN 84-year-old man who presented to [facility] on July 03, 2024 with encephalopathy.
Mr. Ledezma reports no complaints. Continues to have fluent receptive aphasia. No reports of headaches, change in strength or vision.
TTE-pending.
Labs: Hemoglobin A1c�6.8, creatinine�1.5, LDL�157.
Brain MRI�acute left MCA/[employer] territory infarct
PMH: PA A-Fib, CAD, COPD, parkinsonism/encephalopathy/ambulatory dysfunction, AAA, HTN, DLP, DM, CKD, BPH, NUSRAT, OA
PSH: Bilateral CEA, C7/T7 fusion PTCA, right inguinal hernia repair, anemia,
SH: Former smoker, ambulates with a walker
FH: Unknown
All:Chantix�
ROS: Limited due to aphasia
General: Well developed. In no acute distress.
Cardio: Regular rate and rhythm without murmur. Extremities are without cyanosis or edema.
Neuro:
Mental Status: Alert, severe expressive<receptive aphasia. Mimics. No hemineglect
Cranial Nerves: Pupils are equally round, surgical. Horizontal EOMs full. Blinks to threat right less than left. No ptosis. No nystagmus. Face symmetric. Impaired hearing AU. Tongue midline. No dysarthria.
Motor: Increased motor tone in upper and lower extremities. No PT or leg drift
Reflexes: Bilateral grasp
Sensory: Limited exam due to aphasia
Coordination: Mild action hand tremor. Limited dysmetria exam
Gait: deferred
Assessment and Plan:
I. Acute left MCA stroke. Likely etiology�cardioembolic from medication noncompliance.
II. PA A-Fib
III. History of carotid artery disease, status post bilateral CEA
IV. Parkinsonism
- Continue Telemetry monitoring
- Continue aspirin 81 mg QD and Plavix 75 mg once a day
- Lipitor 40 mg QHS.
- Restart Eliquis in 7 days if no change in clinical exam
- Speech therapy
- Please follow-up TTE
- Please recall neurology services any questions or concerns
I personally reviewed all radiology and labs along with past medical records pertinent to current medical problems. Total time spent in patient care is 60 minutes.
Thank you for allowing us to participate in the care of this patient. Please do not hesitate to contact us with any questions or concerns
Objective Data
Vital Signs
Temp Pulse Resp BP Pulse Ox
36.5 C 61 16 131/60 97
07/05/24 03:43 07/05/24 07:29 07/05/24 07:29 07/05/24 03:43 07/05/24 07:29
Lab Results
07/05/24 05:45
07/05/24 05:45
Sodium 137 mmol/L (135-145) 07/05/24 05:45
Potassium 4.6 mmol/L (3.5-5.1) 07/05/24 05:45
BUN 50 mg/dl (9-20) H 07/05/24 05:45
Glucose 155 mg/dl (70-99) H 07/05/24 05:45
Calcium 8.8 mg/dl (8.4-10.2) 07/05/24 05:45
LDL Cholesterol, Calc Cancelled 07/04/24 10:18
Patient Allergies
varenicline [Varenicline] Allergy (Verified 07/03/24 20:45)
weird dreams
Vital Signs and Labs
-
Vital Signs and Labs:
Vital Signs
Temp Pulse Resp BP Pulse Ox
36.6 C 83 16 165/73 97
07/05/24 07:40 07/05/24 07:40 07/05/24 07:40 07/05/24 07:40 07/05/24 07:40
Lab Results
07/05/24 05:45
07/05/24 05:45
Sodium 137 mmol/L (135-145) 07/05/24 05:45
Potassium 4.6 mmol/L (3.5-5.1) 07/05/24 05:45
BUN 50 mg/dl (9-20) H 07/05/24 05:45
Glucose 155 mg/dl (70-99) H 07/05/24 05:45
Calcium 8.8 mg/dl (8.4-10.2) 07/05/24 05:45
LDL Cholesterol, Calc Cancelled 07/04/24 10:18
Medications
-
Medications:
Generic Name Dose Route Start Last Admin
Trade Name Freq PRN Reason Stop Dose Admin
Acetaminophen 650 mg 07/03/24 20:43
Acetaminophen 325 Mg Tablet PO 07/31/24 20:42
Q4HPRN PRN
mild pain/ANDERSON/temp> 100.4F
Aspirin 81 mg 07/04/24 12:00 07/05/24 08:11
Aspirin 81 Mg (Enteric Coated) Tablet PO 08/01/24 11:59 81 mg
DAILY TARA Administration
Atorvastatin Calcium 40 mg 07/04/24 18:00 07/04/24 18:10
Atorvastatin (Lipitor) 40 Mg Tablet PO 08/01/24 17:59 40 mg
QPM TARA Administration
Bisacodyl 10 mg 07/03/24 20:43
Bisacodyl 10 Mg Rectal Suppository RECTAL 07/31/24 20:42
[id number] PRN
constipation
Budesonide/Formoterol Fumarate 2 puff 07/04/24 08:00 07/05/24 07:27
Symbicort Inhaler 160/4.5 INH 08/01/24 07:59 2 puff
R BID TARA Administration
Protocol
Carbidopa/Levodopa 1 tablet 07/03/24 22:00 07/05/24 08:11
Carbidopa (25 Mg)/Levodopa (100 Mg) Regular Release Tablet PO 07/31/24 21:59 1 tablet
TID TARA Administration
Clopidogrel Bisulfate 75 mg 07/04/24 12:03 07/05/24 08:11
Clopidogrel 75 Mg Tablet PO 07/25/24 12:02 75 mg
DAILY TARA Administration
Dextrose 12.5 grams 07/03/24 20:43
Dextrose 50% (0.5 Grams/Ml) 50 Ml Syringe IV 07/31/24 20:42
[id number] PRN
hypoglycemia
Protocol
Glucagon 1 mg 07/03/24 20:43
Glucagon 1 Mg Vial IM 07/31/24 20:42
PRN PRN
hypoglycemia
Protocol
Heparin Sodium 5,000 units 07/04/24 20:00 07/05/24 08:11
Heparin 5,000 Units/Ml 1 Ml Vial SC 08/01/24 19:59 5,000 units
Q12 TARA Administration
Insulin Aspart 0 units 07/04/24 07:30 07/05/24 08:10
Insulin Aspart Low Resistance 300 Units/3 Ml Pen.Injctr SC 08/01/24 07:29 1 units
AC TARA Administration
Protocol
Miconazole Nitrate 0 applic 07/05/24 08:00 07/05/24 08:12
Miconazole Powder Bottle TOPICAL 08/02/24 07:59 1 applic
BID TARA Administration
Polyethylene Glycol 17 grams 07/03/24 20:43
Polyethylene Glycol Powder 17 Grams Packet PO 07/31/24 20:42
DAILYPRN PRN
constipation
Senna/Docusate Sodium 1 tablet 07/03/24 20:43
Docusate W/Senna (Cyndee-Colace) Tablet PO 07/31/24 20:42
BIDPRN PRN
constipation
Sodium Chloride 0 flush 07/03/24 21:00
Sodium Chloride 0.9% (Flush) Syringe IV 07/31/24 20:59
PER PROTOCOL TARA
Tamsulosin HCl 0.4 mg 07/03/24 22:00 07/04/24 21:37
Tamsulosin 0.4 Mg Capsule PO 07/31/24 21:59 0.4 mg
HS TARA Administration
Tiotropium [place]ola 2 puff 07/04/24 08:00 07/05/24 07:28
Tiotropium (Spiriva Respimat) 2.5 Mcg Inhaler INH 08/01/24 07:59 2 puff
R DAILY TARA Administration
Protocol
Trazodone HCl 50 mg 07/03/24 20:43
Trazodone 50 Mg Tablet PO 07/31/24 20:42
HSPRN PRN
sleep
Home Medications
-
Home Medications
trazodone 50 mg tablet 50 mg PO HSPRN PRN sleep 07/07/18
atorvastatin 20 mg tablet 20 mg PO QPM High cholesterol 02/03/20
tamsulosin 0.4 mg capsule 0.4 mg PO HS Urinary issue 02/03/20
carbidopa 25 mg-levodopa 100 mg tablet 1 tab PO TID 07/03/24
fluticasone fur. 200 mcg-umeclid 62.5 mcg-vilant 25 mcg inhalat.powder (Trelegy Ellipta) 1 inh inhalation R DAILY 07/03/24
[2024-07-05 07:40] VITALS: BP 165/73
[2024-07-05] MEDS: NOVOLOG FLEXPEN-LOW RESISTANCE 1 UNITS SC (08:10)
[2024-07-05] MEDS: HEPARIN 5000 UNITS SC ×2 (08:11→21:11)
[2024-07-05] MEDS: SINEMET 25-100 1 TABLET PO ×3 (08:11→21:13)
[2024-07-05] MEDS: PLAVIX 75 MG PO (08:11)
[2024-07-05] MEDS: ASPIR LOW (ENTERIC COATED) 81 MG PO (08:11)
[2024-07-05] MEDS: DESENEX/MITRAZOL/ZEASORB 1 APPLIC TOPICAL ×2 (08:12→21:23)
[2024-07-05 10:48] VITALS: BP 124/67; PULSE 61
--- NOTE | 2024-07-05 11:39 | W.PN.HOSP.TC ---
Today's Communication/Plan
-
Monitor vital signs and see plan
Discussed with neurology, continue with dual antiplatelet therapy currently. Once transition to Eliquis in 7 days then discontinue aspirin and Plavix
Carotid ultrasound, echo pending
PT/OT, speech to evaluate
Assessment / Plan
Assessment / Plan
General: No Apparent Distress and Other (looks thin and chronically ill)
HEENT: NormoCephalic, Moist mucous membranes and Atraumatic
Respiratory: Clear
Cardiac: S1/S2, Regular Rhythm and Bradycardia; No Murmur or Rub
GI: Soft, Non Tender, Non Distended and Normal Bowel Sounds
Musculoskeletal: No Edema
Skin: No Rash
Neuro: expressive aphasia
Expressive aphasia change mental status likely secondary to acute CVA
MRI brain with CVA rather than mass
Neurology following; started DAPT for now. per neurology start eliquis in 7 days and then dc ASA and plavix
Discussed with patient's cousin who is listed as point of contact, per her he used to be on Eliquis which was discontinued and he is also currently not taking any Plavix. Cousin will provide us accurate medication list. per cousin, majority of his
meds were stopped after discussion with his PCP, cardiology and neurology since patient was not compliant with his medications
- Patient aware although cognitively not totally convinced he is fully understanding
DC Decadron, Keppra
echo and carotid US pending
PT/OT, speech
Leukocytosis likely secondary to steroids he received on admission
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
- baseline Cr 1.3- 1.7 , baseline e GFR 55
monitor
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
Suspect dementia
HX cogntive decline endorsed by cousin
HX HLD
- c/w ASA, Atorvastatin
HX Prx AF
see above
monitor
Chronic HFpEF with LVEF 65- 70 in 2022
- clinically well compensated
- Monitor volume status with I's and O's, and daily weights.
follows up with Dr Gamez outpatient
CAD HX s/p stent:
Hyperlipidemia:
- Continue aspirin and atorvastatin
Essential hypertension
- Continue Cardizem
DM T2
DM meds also been stopped outpatient
cw sliding scale
A1c 6.8; depends on sugar likely will need PO diabetes meds to start
HX COPD
- Continue trelegy
Chronic macrocytic anemia:
Hemoglobin at base
Anxiety:
- Continue trazodone
BPH:
- Continue Flomax
DVT prophylaxis: heparin
CODE STATUS: Full code
PT/OT; speech
Anticipated Discharge: 24 - 48 hours
Subjective/Interval History
-
Date of Service: July 05, 2024
denies pain
Objective Data
-
Labs:
Laboratory Results
07/05/24
05:45
WBC 15.4 H
Hgb 13.3
Hct 37.8 L
Plt Count 110 L
Sodium 137
Potassium 4.6
Chloride 107
Carbon Dioxide 24
BUN 50 H
Creatinine 1.4 H
Glucose 155 H
Calcium 8.8
Vital Signs:
Vital Signs
Temp Pulse Resp BP Pulse Ox
97.8 F 83 16 165/73 97
07/05/24 07:40 07/05/24 07:40 07/05/24 07:40 07/05/24 07:40 07/05/24 07:40
I&O
07/04/24 07/05/24 07/06/24
06:59 06:59 06:59
Intake Total 680 / 680
Output Total 250 / 250
Balance -250 / -250 680 / 680
[2024-07-05 11:48] VITALS: BP 132/55
[2024-07-05 12:17] LABS: Glucose - Point of Care 219 mg/dl (70-99)
[2024-07-05] MEDS: NOVOLOG FLEXPEN-LOW RESISTANCE 2 UNITS SC (12:42)
--- NOTE | 2024-07-05 13:52 | PTOTSP ---
Acute Care Evaluation
Pt currently presents with clinical signs of mild oropharyngeal dysphagia characterized by reduced bolus formation with dry hard solids as evidenced by diffuse oral residue as well as coughing with dry hard solids and multiple sequential sips of
thin liquids. Pt is at an elevated risk for aspiration given his acute L MCA CVA as well as his possible dx of Parkinsonism.
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 As it pertains to the pt's overall communication picture, pt's relative strengths include pt's speech intelligibility, vocal quality, automatic/reflexive speech production,
repetition, grammatical construction, and independent use of gestures at times to assist his communication. Pt's areas of deficit include his comprehension of single words, recognition of depicted nouns, comprehension of sentences, word finding, and
reading. Pt is visibly aware of his frustration with communicating his thoughts, and expressed this difficulty (in his own ways) during the evaluation. Although it may appear as though the pt understands what a speaker is saying at times (he may nod
along in agreement as someone is speaking), there are often times when he whole-heartedly believes he comprehended what someone says, but was completely incorrect in his understanding during these assessments (e.g., with identifying a picture out of
a set of four items; following a simple one step-direction; etc.). It is important to keep this in mind when determining whether the pt has the capacity to make medical decisions for himself, as he likely will not be able to understand the content
being communicated to him.
Recommendations:
- Diet change to SOFT BITE SIZED SOLIDS and THIN LIQUIDS with SINGLE SIPS ONLY and meds WHOLE OR CRUSHED IN PUREE.
- ASPIRATION PRECAUTIONS: CLOSE supervision during PO intake; small bites; SINGLE SIPS ONLY; alternate solids/liquids.
- GALLERY OR MUSEUM ATTENDANT to f/u re: diet tolerance, use of compensatory strategies, and to determine if pt would benefit from an instrumental swallow study.
- GALLERY OR MUSEUM ATTENDANT to f/u to provide receptive and expressive language tx for severe transcortical sensory aphasia.
- Pt would benefit from continued GALLERY OR MUSEUM ATTENDANT tx upon discharge at next level of care. Recommending acute rehab upon discharge.
[2024-07-05 15:35] VITALS: BP 118/48
[2024-07-05 16:58] LABS: Glucose - Point of Care 255 mg/dl (70-99)
[2024-07-05] MEDS: NOVOLOG FLEXPEN-LOW RESISTANCE 3 UNITS SC (17:08)
[2024-07-05] MEDS: LIPITOR 40 MG PO (17:08)
[2024-07-05] MEDS: FLOMAX PO (21:12)
[2024-07-05 21:34] LABS: Glucose - Point of Care 155 mg/dl (70-99)
[2024-07-05 23:16] VITALS: BP 149/59
[2024-07-06] VITALS (8 sets, daily range): BP systolic 109–153; BP diastolic 50–69; PULSE 76; O2SAT 98; BMI 20.5
[2024-07-06] MEDS: SYMBICORT 160/4.5 MCG INHALER 2 PUFF INH ×2 (07:50→19:39)
[2024-07-06] MEDS: SPIRIVA RESPIMAT 2.5 MCG 2 PUFF INH (07:50)
[2024-07-06 07:53] LABS: % Basophils 0.4 % (0-2); % Eosinophils 1.7 % (0-6); % Immature Granulocytes 0.3 % (0-0.5); % Lymphocytes 16.8 % (20.5-51.1); % Neutrophils 71.8 % (42.2-75.2); Absolute Eosinophils 0.1 10^3/uL (0-0.7); Absolute Lymphocytes 1.3 10^3/uL (1.2-3.4); Absolute Monocytes 0.7 10^3/uL (0.1-0.6); Absolute Neutrophils 5.6 10^3/uL (1.4-6.5); Hematocrit 38.1 % (39.0-52.0); Hemoglobin 13.5 g/dL (13.0-18.0); Mean Corp Hgb Conc. 35.4 g/dL (33.0-37.0); Mean Corpuscular Hgb 32.5 pg (27.0-31.0); Mean Corpuscular Volume 91.6 fL (80.0-94.0); Mean Platelet Volume 9.5 fL (7.4-10.4); Nucleated Red Blood Cells % 0 % (-); Platelet Count 107 10^3/uL (130-400); Red Blood Cell Count 4.16 10^6/uL (4.70-6.10); White Blood Cell Count 7.8 10^3/uL (4.8-10.8)
[2024-07-06 08:20] LABS: Glucose - Point of Care 121 mg/dl (70-99)
[2024-07-06] MEDS: NOVOLOG FLEXPEN-LOW RESISTANCE SC ×2 (08:22→17:28)
[2024-07-06] MEDS: PLAVIX 75 MG PO (08:23)
[2024-07-06] MEDS: ASPIR LOW (ENTERIC COATED) 81 MG PO (08:23)
[2024-07-06] MEDS: SINEMET 25-100 1 TABLET PO ×3 (08:23→21:18)
[2024-07-06] MEDS: HEPARIN 5000 UNITS SC ×2 (08:23→21:17)
[2024-07-06] MEDS: DESENEX/MITRAZOL/ZEASORB 1 APPLIC TOPICAL ×2 (08:23→21:17)
[2024-07-06 08:30] LABS: Blood Urea Nitrogen 50 mg/dl (9-20); Calcium 8.9 mg/dl (8.4-10.2); Carbon Dioxide 24 mmol/L (22-30); Chloride 106 mmol/L (98-107); Estimated Creatinine Clearance 31 ml/min; Glucose 122 mg/dl (70-99); Potassium 5.1 mmol/L (3.5-5.1); Sodium 138 mmol/L (135-145); eGFR 49.87
--- NOTE | 2024-07-06 11:26 | CM ---
Addendum entered by Evette Woodward RN 07/07/24 15:54:
Reviewed the chart notes and spoke with the patient at the bedside. Discussed that [facility] and [facility] have accepted him. He selected [facility]. Left voice message for Zoila to obtain NPI #. Also sent message in [facility] for same. Precert will be required for SNF.
Original Note:
Reviewed the chart notes and spoke with the patient at the bedside. PT recommending SNF/rehab prior to transitioning home. Patient in agreement with referrals being sent to area SNFs. Explained to patient that many facilities accept his
insurance, so might take a bit to find a spot. CM continues to be available to patient/family and is monitoring medical plan for needs at discharge.
Plan: Discharge to a SNF/rehab once a bed is found and prior auth obtained.
[2024-07-06 12:06] LABS: Glucose - Point of Care 224 mg/dl (70-99)
--- NOTE | 2024-07-06 12:30 | W.PN.HOSP.TC ---
Today's Communication/Plan
-
Follow echo
PT OT evaluation from today and started discharge plan
Assessment / Plan
Assessment / Plan
Expressive aphasia change mental status likely secondary to acute CVA
MRI brain with CVA rather than mass
Neurology following; started DAPT for now. per neurology start eliquis in 7 days and then dc ASA and plavix
Dr Lehman Discussed with patient's cousin who is listed as point of contact, per her he used to be on Eliquis which was discontinued and he is also currently not taking any Plavix. Cousin will provide us accurate medication list. per cousin,
majority of his meds were stopped after discussion with his PCP, cardiology and neurology since patient was not compliant with his medications
- Patient aware although cognitively not totally convinced he is fully understanding
DC Decadron, Keppra
echo and carotid US pending
PT/OT, speech
Leukocytosis likely secondary to steroids he received on admission
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
- baseline Cr 1.3- 1.7 , baseline e GFR 55
monitor
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
Suspect dementia
HX cogntive decline endorsed by cousin
HX HLD
- c/w ASA, Atorvastatin
HX Prx AF
see above
monitor
Chronic HFpEF with LVEF 65- 70 in 2022
- clinically well compensated
- Monitor volume status with I's and O's, and daily weights.
follows up with Dr Gamez outpatient
CAD HX s/p stent:
Hyperlipidemia:
- Continue aspirin and atorvastatin
Essential hypertension
- Continue Cardizem
DM T2
DM meds also been stopped outpatient
cw sliding scale
A1c 6.8; depends on sugar likely will need PO diabetes meds to start
HX COPD
- Continue trelegy
Chronic macrocytic anemia:
Hemoglobin at base
Anxiety:
- Continue trazodone
BPH:
- Continue Flomax
DVT prophylaxis: heparin
CODE STATUS: Full code
PT/OT; speech
Anticipated Discharge: Within 24 hours
Subjective/Interval History
-
Date of Service: July 06, 2024
He seems to have expressive aphasia. He follows all commands and understands but seems to have some difficulty in naming things and having a conversation. He seems to struggle in finding his words. Some of the times it makes sense but not other
times. Noted by RN as well.
Denies any headache.
Denies any limb weakness.
Denies any vision issues.
Objective Data
-
Labs:
Laboratory Results
07/06/24
07:20
WBC 7.8
Hgb 13.5
Hct 38.1 L
Plt Count 107 L
Sodium 138
Potassium 5.1
Chloride 106
Carbon Dioxide 24
BUN 50 H
Creatinine 1.4 H
Glucose 122 H
Calcium 8.9
Vital Signs:
Vital Signs
Temp Pulse Resp BP Pulse Ox
97.5 F 57 16 143/63 95
07/06/24 11:20 07/06/24 11:20 07/06/24 11:20 07/06/24 11:20 07/06/24 11:20
I&O
07/05/24 07/06/24 07/07/24
06:59 06:59 06:59
Intake Total 680 / 680 480 / 480
Balance 680 / 680 480 / 480
Review of Systems
-
Unable to obtain full review of systems at this time due to: Other (Expressive aphasia)
Physical Exam
-
General: No Apparent Distress
HEENT: Moist Mucous Membranes
Respiratory: Clear to Auscultation
Cardiac: Regular Rhythm and S1/S2
GI: Soft
Neuro: Awake, Alert, Oriented and No Motor Deficits; Negative Tremors, Slurred Speech or Facial Droop
Psych: Calm
Data Reviewed
-
Labs: Labs Reviewed by me
[2024-07-06] MEDS: NOVOLOG FLEXPEN-LOW RESISTANCE 2 UNITS SC (12:58)
[2024-07-06 17:23] LABS: Glucose - Point of Care 135 mg/dl (70-99)
[2024-07-06] MEDS: LIPITOR 40 MG PO (17:42)
[2024-07-06] MEDS: FLOMAX 0.4 MG PO (21:18)
[2024-07-06 23:19] LABS: Glucose - Point of Care 139 mg/dl (70-99)
[2024-07-07] VITALS (7 sets, daily range): BP systolic 106–147; BP diastolic 50–70; PULSE 94; O2SAT 98; BMI 20.4
[2024-07-07 08:30] LABS: Glucose - Point of Care 144 mg/dl (70-99)
[2024-07-07] MEDS: SPIRIVA RESPIMAT 2.5 MCG 2 PUFF INH (08:33)
[2024-07-07] MEDS: NOVOLOG FLEXPEN-LOW RESISTANCE SC ×3 (08:33→17:18)
[2024-07-07] MEDS: SINEMET 25-100 1 TABLET PO ×3 (08:33→21:35)
[2024-07-07] MEDS: SYMBICORT 160/4.5 MCG INHALER 2 PUFF INH ×2 (08:33→19:53)
[2024-07-07] MEDS: HEPARIN 5000 UNITS SC ×2 (08:33→20:28)
[2024-07-07] MEDS: ASPIR LOW (ENTERIC COATED) 81 MG PO (08:33)
[2024-07-07] MEDS: PLAVIX 75 MG PO (08:33)
[2024-07-07] MEDS: DESENEX/MITRAZOL/ZEASORB 1 APPLIC TOPICAL ×2 (08:34→20:31)
--- NOTE | 2024-07-07 09:28 | W.PN.HOSP.TC ---
Today's Communication/Plan
-
DC
Assessment / Plan
Assessment / Plan
Expressive aphasia change mental status likely secondary to acute CVA
MRI brain with CVA rather than mass. MRI concerning for embolic stroke.
Neurology following; started DAPT for now. per neurology start eliquis in 7 days and then dc ASA and plavix
Dr Lehman Discussed with patient's cousin who is listed as point of contact, per her he used to be on Eliquis which was discontinued and he is also currently not taking any Plavix. Cousin will provide us accurate medication list. per cousin,
majority of his meds were stopped after discussion with his PCP, cardiology and neurology since patient was not compliant with his medications
- Patient aware although cognitively not totally convinced he is fully understanding
DC Decadron, Keppra
Carotid ultrasound without hemodynamically significant stenosis
Echocardiogram shows normal EF with no significant valvular abnormalities. No obvious thrombus.
PT/OT, speech following. Rehab recommended.
Leukocytosis likely secondary to steroids he received on admission
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
- baseline Cr 1.3- 1.7 , baseline e GFR 55
monitor
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
Suspect dementia
HX cogntive decline endorsed by cousin
HX HLD
- c/w ASA, Atorvastatin
HX Prx AF
see above
monitor
Chronic HFpEF with LVEF 65- 70 in 2022
- clinically well compensated
- Monitor volume status with I's and O's, and daily weights.
follows up with Dr Gamez outpatient
CAD HX s/p stent:
Hyperlipidemia:
- Continue aspirin and atorvastatin
Essential hypertension
- Continue Cardizem
DM T2
DM meds also been stopped outpatient
cw sliding scale
A1c 6.8; depends on sugar likely will need PO diabetes meds to start
HX COPD
- Continue trelegy
Chronic macrocytic anemia:
Hemoglobin at base
Anxiety:
- Continue trazodone
BPH:
- Continue Flomax
DVT prophylaxis: heparin
CODE STATUS: Full code
PT/OT; speech
Medically stable for discharge when bed available.
Anticipated Discharge: Today
Subjective/Interval History
-
Date of Service: July 07, 2024
Patient still with expressive aphasia. He recognizes that. It is obvious during the conversation with the patient. No receptive aphasia. No motor weakness or sensory symptoms in the limbs. Denies headache.
He did tell me that he was not taking his medication at home and he was advised not to skip his medication without speaking to the physician especially the blood thinners going forward.
Objective Data
-
Vital Signs:
Vital Signs
Temp Pulse Resp BP Pulse Ox
97.5 F 82 16 141/65 98
07/07/24 07:00 07/07/24 08:35 07/07/24 08:35 07/07/24 07:00 07/07/24 08:35
I&O
07/06/24 07/07/24 07/08/24
06:59 06:59 06:59
Intake Total 480 / 480 440 / 440
Balance 480 / 480 440 / 440
Physical Exam
-
Respiratory: Non Labored Respirations; Negative Accessory Resp Muscle Use
Cardiac: Regular Rhythm and S1/S2
GI: Soft
Neuro: AO x 3, No Motor Deficits and Other (Expressive aphasia); Negative Slurred Speech or Facial Droop
Psych: Calm
[2024-07-07 12:08] LABS: Glucose - Point of Care 125 mg/dl (70-99)
[2024-07-07 13:33] LABS: Urine Albumin 1+ (Neg - Trace); Urine Bilirubin Negative (Negative); Urine Character Clear (Clear); Urine Color Yellow; Urine Glucose Negative (Negative); Urine Ketone Negative (Negative); Urine Leukocyte Negative (Negative); Urine Nitrite Negative (Negative); Urine Occult Blood Negative (Negative); Urine Specific Gravity 1.015 (<1.030); Urine Urobilinogen Negative (Neg - 1+)
[2024-07-07 14:34] LABS: Urine Mucus Many
[2024-07-07 14:35] LABS: Urine Amorphous Seen; Urine Urothelial Cell 0-2 /LPF (FEW)
[2024-07-07 14:36] LABS: Urine Red Blood Cell 0-2 /HPF (0-2); Urine White Cell 0-2 /HPF (0-5)
--- NOTE | 2024-07-07 14:54 | PN.CDI ---
CDI
- -
CDI:
Physician Documentation Request
Admit Date: 07/03/24 18:35
Dear Doctor Jagdeep,
Patient admitted with CVA.
07/04 Nursing skin assessment, 'Stage 1 sacral pressure injury, POA....Stage 2 buttock pressure injury, POA.'
Physician documentation of the type and location of wounds is required for compliant documentation. Based on the above clinical findings and your assessment, please provide the following in your progress note:
Location of the ulcer/wound, including laterality.
Type (etiology) of ulcer/wound:
- Pressure (decubitus) ulcer
- Other
- Unable to determine
For a pressure ulcer, please also include the stage* of the ulcer:
- Stage 1 - Skin intact, non-blanchable redness
- Stage 2 - Partial thickness loss of dermis, includes intact or open blister
- Stage 3 - Full thickness tissue not including bone, tendon or muscle
- Stage 4 - Full thickness tissue loss, including exposed bone, tendon or muscle
- Unstageable - Full thickness loss in which the base of the ulcer is covered by slough (yellow, gomez, chow, green or brown) and/or eschar (gomez, brown or black) in the wound bed.
- Unable to determine
Use of terms such as suspected, likely, concern for, or probable (associated with a specific diagnosis that is being evaluated, monitored, or treated as if it exists) are acceptable and can be coded in the inpatient setting, when documented at the
time of discharge.
Thank you,
Jolanta KIM,RN,CCDS
CDI Specialist
Available via tiger text
Please use your independent medical judgment in providing your response.
*Source: National Pressure Ulcer Advisory Panel (NPUAP)
--- NOTE | 2024-07-07 15:07 | PN.CDI ---
CDI
- -
CDI:
Physician Documentation Request
Admit Date: 07/03/24 18:35
Dear Doctor Jagdeep,
Patient admitted with CVA.
Platelet counts documented below:
Laboratory Tests
07/03/24 07/04/24 07/05/24
14:04 07:23 05:45
Plt Count 115 L 106 L 110 L
07/06/24
07:20
Plt Count 107 L
Based on the above, please clarify in the progress notes, the appropriate diagnosis, if significant, that supports the above abnormalities and additional evaluation, monitoring and/or treatment rendered:
Thrombocytopenia
Insignificant abnormal lab findings
Other
Use of terms such as suspected, likely, concern for, or probable (associated with a specific diagnosis that is being evaluated, monitored, or treated as if it exists) are acceptable and can be coded in the inpatient setting, when documented at the
time of discharge.
Thank you,
Jolanta KIM,RN,CCDS
CDI Specialist
Available via [place] text
Please use your independent medical judgment in providing your response.
--- NOTE | 2024-07-07 15:08 | PTCARENOTE ---
Patient with urinary frequency. MD made aware. Bladder scan/ straight cath protocol followed. See worklist documentation. Urine sample sent per order.
[2024-07-07] MEDS: LIPITOR 40 MG PO (17:13)
[2024-07-07 17:18] LABS: Glucose - Point of Care 125 mg/dl (70-99)
[2024-07-07 21:31] LABS: Glucose - Point of Care 139 mg/dl (70-99)
[2024-07-07] MEDS: FLOMAX 0.4 MG PO (21:35)
[2024-07-08 03:01] VITALS: BP 116/36
[2024-07-08 06:00] VITALS: BMI 21.0
[2024-07-08 07:35] VITALS: BP 122/63
[2024-07-08] MEDS: SINEMET 25-100 1 TABLET PO ×3 (08:06→21:44)
[2024-07-08] MEDS: HEPARIN 5000 UNITS SC ×2 (08:06→20:39)
[2024-07-08] MEDS: PLAVIX 75 MG PO (08:06)
[2024-07-08] MEDS: ASPIR LOW (ENTERIC COATED) 81 MG PO (08:06)
[2024-07-08] MEDS: DESENEX/MITRAZOL/ZEASORB 1 APPLIC TOPICAL ×2 (08:06→20:44)
[2024-07-08 08:08] LABS: Glucose - Point of Care 133 mg/dl (70-99)
[2024-07-08] MEDS: NOVOLOG FLEXPEN-LOW RESISTANCE SC ×3 (08:09→17:29)
[2024-07-08] MEDS: SPIRIVA RESPIMAT 2.5 MCG 2 PUFF INH (10:42)
[2024-07-08] MEDS: SYMBICORT 160/4.5 MCG INHALER 2 PUFF INH ×2 (10:42→20:01)
[2024-07-08 11:10] VITALS: BP 128/60
--- NOTE | 2024-07-08 12:18 | W.PN.HOSP.TC ---
Today's Communication/Plan
-
DC when bed available
Assessment / Plan
Assessment / Plan
Expressive aphasia change mental status likely secondary to acute CVA
MRI brain with CVA rather than mass. MRI concerning for embolic stroke.
Neurology following; started DAPT for now. per neurology start eliquis in 7 days ie 07/11 and then dc ASA and plavix
Dr Lehman Discussed with patient's cousin who is listed as point of contact, per her he used to be on Eliquis which was discontinued and he is also currently not taking any Plavix. Cousin will provide us accurate medication list. per cousin,
majority of his meds were stopped after discussion with his PCP, cardiology and neurology since patient was not compliant with his medications
- Patient aware although cognitively not totally convinced he is fully understanding
DC Decadron, Keppra
Carotid ultrasound without hemodynamically significant stenosis
Echocardiogram shows normal EF with no significant valvular abnormalities. No obvious thrombus.
PT/OT, speech following. Rehab recommended.
Leukocytosis likely secondary to steroids he received on admission
BP under goal
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
- baseline Cr 1.3- 1.7 , baseline e GFR 55
monitor
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
Suspect dementia
HX cogntive decline endorsed by cousin
HX HLD
- c/w ASA, Atorvastatin
HX Prx AF
see above
monitor
Chronic HFpEF with LVEF 65- 70 in 2022
- clinically well compensated
- Monitor volume status with I's and O's, and daily weights.
follows up with Dr Gamez outpatient
CAD HX s/p stent:
Hyperlipidemia:
- Continue aspirin and atorvastatin
Essential hypertension
- Continue Cardizem
DM T2
DM meds also been stopped outpatient
cw sliding scale
A1c 6.8
Blood sugars mostly around 140 s
eGFR>45 -will start on Metformin to optimize glycemic control
HX COPD
- Continue trelegy
Chronic macrocytic anemia:
Hemoglobin at base
Anxiety:
- Continue trazodone
BPH:
- Continue Flomax
DVT prophylaxis: heparin
CODE STATUS: Full code
PT/OT; speech
Medically stable for discharge when bed available.
Total discharge 32 minutes
Anticipated Discharge: Today
Subjective/Interval History
-
Date of Service: July 08, 2024
He feels his speech is improving. No new complaints. No headache. No limb weakness.
No overnight events.
Await placement.
Objective Data
-
Vital Signs:
Vital Signs
Temp Pulse Resp BP Pulse Ox
97.7 F 92 16 128/60 98
07/08/24 11:10 07/08/24 11:10 07/08/24 11:10 07/08/24 11:10 07/08/24 11:10
I&O
07/07/24 07/08/24 07/09/24
06:59 06:59 06:59
Intake Total 440 / 440 240 / 240
Output Total 125 / 125
Balance 440 / 440 115 / 115
Review of Systems
-
Respiratory: Denies Trouble Breathing
Cardiac: Denies Chest Pain
Abdomen/GI: Denies Abdominal Pain, Nausea or Vomiting
Neuro: Denies Dizzy
Physical Exam
-
Respiratory: Non Labored Respirations; Negative Accessory Resp Muscle Use
Cardiac: Regular Rhythm and S1/S2
GI: Soft
Neuro: AO x 3, No Motor Deficits and Other (speech more fluent)
Psych: Calm
Data Reviewed
-
Labs: Labs Reviewed by me
[2024-07-08 12:53] LABS: Glucose - Point of Care 190 mg/dl (70-99)
[2024-07-08] MEDS: NOVOLOG FLEXPEN-LOW RESISTANCE 1 UNITS SC (13:18)
--- NOTE | 2024-07-08 13:58 | CM ---
Addendum entered by April Hester 07/08/24 15:55:
pending auth [id number], clinicals faxed to . awaiting response.
Original Note:
Patient for discharge when auth in place. CM updated [facility] in all scripts. Starting auth. /Dr. Gutierrez . CM updated physician, auth pending. CM will continue to follow for discharge planning needs.
Plan; [facility] when auth in place
[2024-07-08 15:25] VITALS: BP 131/56
[2024-07-08] MEDS: LIPITOR 40 MG PO (17:26)
[2024-07-08 17:30] LABS: Glucose - Point of Care 130 mg/dl (70-99)
[2024-07-08 19:10] VITALS: BP 127/64
[2024-07-08] MEDS: FLOMAX 0.4 MG PO (21:44)
[2024-07-08 21:49] LABS: Glucose - Point of Care 144 mg/dl (70-99)
[2024-07-08 23:21] VITALS: BP 152/82
[2024-07-09 03:04] VITALS: BP 116/63
[2024-07-09 06:00] VITALS: BMI 19.8
[2024-07-09] MEDS: SYMBICORT 160/4.5 MCG INHALER 2 PUFF INH (07:34)
[2024-07-09] MEDS: SPIRIVA RESPIMAT 2.5 MCG 2 PUFF INH (07:34)
[2024-07-09 07:45] VITALS: BP 112/51
[2024-07-09] MEDS: PLAVIX 75 MG PO (07:49)
[2024-07-09] MEDS: ASPIR LOW (ENTERIC COATED) 81 MG PO (07:49)
[2024-07-09] MEDS: SINEMET 25-100 1 TABLET PO ×2 (07:49→15:43)
[2024-07-09] MEDS: HEPARIN 5000 UNITS SC (07:50)
[2024-07-09] MEDS: NOVOLOG FLEXPEN-LOW RESISTANCE SC (07:51)
[2024-07-09] MEDS: DESENEX/MITRAZOL/ZEASORB 1 APPLIC TOPICAL (07:51)
[2024-07-09 07:52] LABS: Glucose - Point of Care 144 mg/dl (70-99)
--- NOTE | 2024-07-09 10:27 | CM ---
Addendum entered by Evette Woodward RN 07/09/24 16:06:
Patient' cousin Agustina called CM office to report not wanting patient to go to [facility]. There was never a referral sent to [facility], so CM would have no idea that the facility was holding a bed. Left voice message on Agustina's number that patient
will be transported at 4:30pm today.
Addendum entered by Evette Woodward RN 07/09/24 14:30:
SNF changed per family request to [facility].
Call report to: [phone]
Fax report to: [phone]
Medical necessity and transport forms on chart.
Addendum entered by Evette Woodward RN 07/09/24 13:41:
CM spoke with Agustina regarding discharge.
Addendum entered by Evette Woodward RN 07/09/24 12:08:
Call report to: [phone], ext [phone]
Fax report to: [phone]
Medical necessity and transport forms on chart.
Addendum entered by Evette Woodward RN 07/09/24 11:55:
Message left for contact Agustina regarding discharge along with CM information if she needed more information.
Addendum entered by Evette Woodward RN 07/09/24 11:46:
IMM signed and placed on chart.
Original Note:
Reviewed the chart notes. Auth still pended for [facility]. CM continues to be available to patient/family and is monitoring medical plan for needs at discharge.
Plan: Discharge to [facility] once auth approved.
--- NOTE | 2024-07-09 10:32 | CM ---
Yaa aguilera [facility] #[id number] from 07/09-07/13 and reference # [id number] Mara Maya is the UR rep [id number].
--- NOTE | 2024-07-09 10:33 | W.PN.HOSP.TC ---
Addendum entered and electronically signed by Franko Gannon MD 07/11/24 16:47:
Stage 1 sacral pressure injury, POA....Stage 2 buttock pressure injury, POA.
Low platelts suggestive of thrombocytopenia
Addendum entered and electronically signed by Franko Gannon MD 07/09/24 10:40:
Pt was on Cardizem at home - will restart his home dose.
Original Note:
Today's Communication/Plan
-
dc
Assessment / Plan
Assessment / Plan
Expressive aphasia change mental status likely secondary to acute CVA
MRI brain with CVA rather than mass. MRI concerning for embolic stroke.
Neurology following; started DAPT for now. per neurology start eliquis in 7 days ie 07/11 and then dc ASA and plavix
Dr Lehman Discussed with patient's cousin who is listed as point of contact, per her he used to be on Eliquis which was discontinued and he is also currently not taking any Plavix. Cousin will provide us accurate medication list. per cousin,
majority of his meds were stopped after discussion with his PCP, cardiology and neurology since patient was not compliant with his medications
- Patient aware although cognitively not totally convinced he is fully understanding
Off of Decadron, Keppra
Carotid ultrasound without hemodynamically significant stenosis
Echocardiogram shows normal EF with no significant valvular abnormalities. No obvious thrombus.
PT/OT, speech following. Rehab recommended.
BP under goal
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
- baseline Cr 1.3- 1.7 , baseline e GFR 55
monitor
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
Suspect dementia
HX cogntive decline endorsed by cousin
HX HLD
- c/w ASA, Atorvastatin
HX Prx AF
Pt with tachy and PACs earlier
Start on low dose cardizem
Chronic HFpEF with LVEF 65- 70 in 2022
- clinically well compensated
- Monitor volume status with I's and O's, and daily weights.
follows up with Dr Gamez outpatient
CAD HX s/p stent:
Hyperlipidemia:
- Continue aspirin and atorvastatin
Essential hypertension
- Continue Cardizem
DM T2
DM meds also been stopped outpatient
cw sliding scale
A1c 6.8
Blood sugars mostly around 140 s
eGFR>45 - started on Metformin to optimize glycemic control
HX COPD
- Continue trelegy
Chronic macrocytic anemia:
Hemoglobin at base
Anxiety:
- Continue trazodone
BPH:
- Continue Flomax
DVT prophylaxis: heparin
CODE STATUS: Full code
PT/OT; speech
Medically stable for discharge when bed available.
Total discharge 32 minutes
Anticipated Discharge: Today
Subjective/Interval History
-
Date of Service: July 09, 2024
No overnight events. Remains with expressive aphasia. Makes it difficult to communicate.
Is able to follow all the commands.
Discussed with RN-no overnight issues other than expressive aphasia and communication issues.
Objective Data
-
Vital Signs:
Vital Signs
Temp Pulse Resp BP Pulse Ox
98.1 F 95 16 112/51 96
07/09/24 07:45 07/09/24 07:45 07/09/24 07:45 07/09/24 07:45 07/09/24 08:10
I&O
07/08/24 07/09/24 07/10/24
06:59 06:59 06:59
Intake Total 240 / 240 1080 / 1080
Output Total 125 / 125
Balance 115 / 115 1080 / 1080
Review of Systems
-
Unable to obtain full review of systems at this time due to: Other (due to expressive aphasia)
Respiratory: Denies Trouble Breathing
Cardiac: Denies Chest Pain
Abdomen/GI: Denies Abdominal Pain, Nausea or Vomiting
Neuro: Denies Dizzy
Physical Exam
-
General: Comfortable
Respiratory: Clear to Auscultation and Non Labored Respirations; Negative Wheezes, Crackles or Accessory Resp Muscle Use
Cardiac: Regular Rhythm and S1/S2
GI: Soft and Nontender
Neuro: AO x 3 and No Motor Deficits; Negative Slurred Speech (aphasia) or Facial Droop
Psych: Calm
[2024-07-09 12:32] LABS: Glucose - Point of Care 172 mg/dl (70-99)
[2024-07-09 12:36] VITALS: BP 137/65
[2024-07-09 12:52] VITALS: BP 137/65; PULSE 99
[2024-07-09] MEDS: NOVOLOG FLEXPEN-LOW RESISTANCE 1 UNITS SC (13:09)
[2024-07-09] MEDS: CARDIZEM SR 120 MG PO (14:01)
--- NOTE | 2024-07-09 14:16 | PTCARENOTE ---
At 1405, Received call from patients cousin Agustina Mathews stating that the patient was supposed to go to [facility] at D/C and not [facility]. Cousin Agustina states they have been holding a bed for him all wk at [facility]. Spoke to
[employer] who will contact [facility] to investigate.
[2024-07-09 15:00] VITALS: BP 140/59
--- NOTE | 2024-07-09 17:25 | PTCARENOTE ---
Patient discharged to [facility], transported [facility]. This RN called report to Minnie at facility. Patient provided hygiene prior to transport, IVs and tele pack removed by this RN. Belongings at bedside handed to transport team.
--- NOTE | 2024-07-11 17:35 | W.DCSUMMARY ---
Discharge Summary
Discharge Data
Date of Admission: 07/03/24
Date of Discharge: 07/09/24
-
Pending Results: No
Hospital Course
Primary diagnosis:
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
Secondary diagnosis:
Chronic disease stage II/III AA
Cognitive decline
Hyperlipidemia
History of paroxysmal atrial fibrillation
History of heart failure with preserved EF.
Coronary artery disease status post prior coronary stenting.
Essential hypertension
Diabetes mellitus type 2
History of chronic obstructive pulmonary disease
Anxiety
Benign prostatic hypertension
Hospital course:
Patient lives with an aunt and was noted but had not to be confused and was noted to have expressive aphasia. He apparently has some cognitive issues ongoing according to the cousin of the patient. MRI of the brain showed At the left
frontoparietal junction, there are 2 small foci of restricted diffusion compatible with foci of acute to subacute infarct, one in the precentral gyrus on page 21 and diffusion-weighted images, and the second slightly more laterally in the
postcentral gyrus on page 22 of diffusion-weighted images. In the left frontal lobe there was a area of old infarction.
He has a history of paroxysmal atrial fibrillation but not sure whether he was compliant with the medication Eliquis.
He was seen by the neurologist was placed on DAPT and neurology recommended Eliquis initiation 7 days from admission.
Carotid ultrasound showed no evidence of hemodynamically significant stenosis. Echocardiogram showed normal EF with no significant valvular abnormality.
He remained to have expressive aphasia. He was seen by his therapist and recommended rehab and he was discharged there. His blood pressure was mostly under goal.
He has a history of diabetes mellitus. His hemoglobin A1c was 6.8. With his EGFR more than 45 was started on metformin for glycemic control.
His history of chronic heart failure but his EF is normal. He was well compensated volume maria without need of diuretics. He has a history of paroxysmal atrial fibrillation and is telemetry showed mostly tacky and PACs were started on low-dose
Cardizem.
After discharge he was advised to continue the aspirin and statins.
Consultants on board:
Neurology-[facility]
Discharge Plan
-
Patient Disposition: Jail/SNF
Discharge Diagnosis/Procedures: Acute stroke with expressive aphasia
Diet: Low Cholesterol and Diabetic, Carb Controlled
Activity: As tolerated
Driving Restrictions: Not until seen by your Dr
Blood Work: BMP in 1-2 weeks to follow on Cr and adjust Metformin
Other Services: PT and OT
Referrals:
Moustapha Doe I., DO [Primary Care Provider] -
Angle Vital MD [Active] - in one month
Prescriptions:
New
aspirin 81 mg Tablet,Delayed Release (Dr/Ec)
81 mg PO DAILY Qty: 2 0RF
Rx Instructions:
Stop after 07/10/2024 dose and start eliquis
clopidogrel 75 mg Tablet
75 mg PO DAILY Qty: 2 0RF
Rx Instructions:
Stop after 07/10/2024 dose and start Eliquis
metformin 500 mg tablet
500 mg PO BID Qty: 1 0RF
diltiazem HCl 120 mg Capsule,Extended Release 12 Hr
120 mg PO Q12 Qty: 1 0RF
Continued
trazodone 50 MG tablet
50 mg PO HSPRN PRN (Reason: sleep)
atorvastatin 20 MG tablet
20 mg PO QPM
tamsulosin 0.4 MG capsule
0.4 mg PO HS
Trelegy Ellipta 200-62.5-25 mcg Blister With Device
1 inh INHALATION R DAILY
carbidopa-levodopa 25-100 mg Tablet
1 tab PO TID
Eliquis 2.5 mg Tablet
2.5 mg PO BID Qty: 0 0RF
Rx Instructions:
starting 07/11/24
Discontinued
Diltiazem Hcl Er beads
240 mg PO DAILY
Rx Instructions:
ATake 1 capsule every evening
Lantus Solostar U-100 Insulin pen injector
100 units SC QHS
Discharge Orders:
Discharge Patient (As Directed); Ordered 07/08/24
Ordered By: Franko Gannon
Discharge Date and Time
Discharge Date/Time: 07/09/24 17:43
Print Language: [place]
== END 2024-07-09 17:43 | DRG 65 ==
LOC: 2 NORTH 18:35
PROVIDERS: Internal Medicine; ADMITTING PHYSICIAN Internal Medicine; ATTENDING PHYSICIAN Internal Medicine; CONSULT PHYSICIAN Psychiatry & Neurology Neurology; EMERGENCY PHYSICIAN Emergency Medicine; PRIMARYCARE PHYSICIAN Internal Medicine
DX: I63.512 Cerebral infarction due to unspecified occlusion or stenosis of left middle cerebral artery (principal); F02.A4 Dementia in other diseases classified elsewhere, mild, with anxiety; I13.0 Hypertensive heart and chronic kidney disease with heart failure and stage 1 through stage 4 chronic kidney disease, or unspecified chronic kidney disease; I50.32 Chronic diastolic (congestive) heart failure; J96.11 Chronic respiratory failure with hypoxia; N18.31 Chronic kidney disease, stage 3a; E11.22 Type 2 diabetes mellitus with diabetic chronic kidney disease; E78.00 Pure hypercholesterolemia, unspecified; G20.A1 Parkinson's disease without dyskinesia, without mention of fluctuations; I48.0 Paroxysmal atrial fibrillation; Z95.5 Presence of coronary angioplasty implant and graft; I25.10 Atherosclerotic heart disease of native coronary artery without angina pectoris; J44.9 Chronic obstructive pulmonary disease, unspecified; D53.9 Nutritional anemia, unspecified; N40.0 Benign prostatic hyperplasia without lower urinary tract symptoms; Z99.81 Dependence on supplemental oxygen; Z86.16 Personal history of COVID-19; Z79.01 Long term (current) use of anticoagulants; Z79.899 Other long term (current) drug therapy; Z87.891 Personal history of nicotine dependence; L89.302 Pressure ulcer of unspecified buttock, stage 2; L89.151 Pressure ulcer of sacral region, stage 1; D69.6 Thrombocytopenia, unspecified
CPT/HCPCS: 70450; 70553; 80048; 80053; 80061; 81003; 81015; 82962; 83036; 85025; 85027; 92523; 92526; 92610; 93005; 93306; 93880; 94640; 96374; 96375; 97163; 97167; 97530; 97535; 99291; A9575